=== PATIENT | male | born 1945 | race Caucasian/White ===

== ENCOUNTER 2021-03-05 12:02 | Inpatient (IN) | payer MEDICARE, OTHER, SELFPAY ==
[2021-03-05] VITALS (16 sets, daily range): BP systolic 153–207; BP diastolic 10–122; PULSE 65–100; RESP 18–24; TEMP 36–36.7; O2SAT 84–93; BMI 34.9; BMI 34.4
--- NOTE | 2021-03-05 12:45 | EKG12_ITS ---
Test Reason : FEVER Blood Pressure : / mmHG Vent. Rate : 095 BPM Atrial Rate : 095 BPM P-R Int : 148 ms QRS Dur : 140 ms QT Int : 420 ms P-R-T Axes : 000 -19 -03 degrees QTc Int : 527 ms Sinus rhythm with Premature supraventricular complexes Right bundle branch block Inferior infarct , age undetermined , cannot be excluded Abnormal ECG Confirmed by GLADIS PEARL, LAVON ([id number]), sound editor GOLDEN CHRISTIANSON ([id number]) on 03/06/2021 11:19:28 AM Referred By: EVELYNE Confirmed By:LAVON GRIFFITH MD
--- NOTE | 2021-03-05 13:04 | EDS_ITS ---
HPI History of Present Illness Chief Complaint: Shortness of Breath Narrative Narrative: 75-year-old male with reported medical history of hypertension for which he takes no medications presenting with shortness of breath. Patient states that he has been having viral symptoms of fever, chills, body aches for about a week. He states that most of these have resolved. He feels more dyspneic than he initially did. Patient was not vaccinated for COVID-19. He has no known sick contacts. Patient is denying chest pain. He states he has a little bit of diarrhea but does not have any abdominal pain. He is not vomiting. [facility] Medical History HTN (hypertension) Home Medications ascorbic acid (vitamin C) 500 mg PO DAILY 03/05/21 [History Last Taken 03/04/21] Allergy/AdvReac Type Severity Reaction Status Date / Time No Known Allergies Allergy Verified 03/05/21 12:10 Social History (Updated 03/05/21 @ 15:[address] Elias Rainey DO) Smoking Status: Former smoker alcohol intake: current alcohol intake frequency: a few times a month substance use type: does not use ROS ROS ED Constitutional Constitutional ED: Reports chills and fever(s) Eyes Eyes: Denies blurry vision, diplopia or other ENT ENT ED: Denies rhinorrhea or sore throat Cardiovascular Cardiovascular: Denies chest pain or palpitations Respiratory/Chest Respiratory/Chest: Reports cough and dyspnea Gastrointestinal Gastrointestinal: Reports diarrhea; Denies abdominal pain, nausea or vomiting Genitourinary Genitourinary ED: Denies dysuria or hematuria Musculoskeletal Musculoskeletal: Reports myalgias; Denies back pain or neck pain Integumentary Denies Abrasions or rash Neurologic Neurologic: Reports headache(s); Denies paresthesias or weakness EXAM Physical Exam Const Vital Signs: 03/05/21 12:08 03/05/21 12:35 03/05/21 12:36 Temperature 97.9 F Temperature Source Temporal Pulse Rate 98 Respiratory Rate 20 H Respiratory Effort Respiratory Depth Respiratory Pattern Blood Pressure 202/93 H 207/104 H Blood Pressure Mean 129 138 Pulse Ox 84 92 Oxygen Delivery Method Room Air Nasal Cannula Oxygen Flow Rate (L/min) 4 03/05/21 12:37 03/05/21 13:13 03/05/21 14:42 Temperature Temperature Source Pulse Rate 100 65 Respiratory Rate 24 H Respiratory Effort Short of Breath Labored Respiratory Depth Deep Respiratory Pattern Tachypnea Blood Pressure 184/105 H 181/10 H Blood Pressure Mean 131 67 Pulse Ox 93 Oxygen Delivery Method Nasal Cannula Nasal Cannula Oxygen Flow Rate (L/min) 4 4 03/05/21 15:41 Temperature 96.8 F L Temperature Source Temporal Pulse Rate 74 Respiratory Rate 19 H Respiratory Effort Respiratory Depth Respiratory Pattern Blood Pressure 175/97 H Blood Pressure Mean 123 Pulse Ox 92 Oxygen Delivery Method Nasal Cannula Oxygen Flow Rate (L/min) 4 Positive obese Constitutional Narrative: Noted to be hypoxic on arrival at 84% on room air. General Appearance ED: NAD; Negative for pallor Nutritional Appearance: obese HEENT Reports dry mucous membranes atraumatic Mouth ED: Yes dry mucous membranes Mouth: dry mucous membranes Eyes PERRL and EOMs intact bilaterally Neck no lymphadenopathy and supple Resp normal respiratory effort Auscultation: rales right base Cardio regular rate Rhythm: abnormal rhythm irregularly irregular GI Palpation: soft and splenomegaly Back/Spine normal to inspection Extremity normal to inspection General Extremety ED: Negative for edema or tenderness General Extremity: Negative for edema Neuro oriented x3 and CN's II-XII intact bilaterally Sensorium / Orientation: alert Psych mental status grossly normal Skin General Skin Exam: Negative for jaundice or pallor Lesions: no lesions Rashes: no rashes MDM MDM MDM Narrative Medical decision making narrative: Patient presenting on day 7 of COVID-19 symptoms. He is not been tested yet. He states he has a history of hypertension for which he does not take any medication for. Patient had an initial EKG which on my interpretation shows atrial fibrillation at a rate of 71 bpm. Chest x-ray my interpretation shows bilateral pulmonary infiltrates with which are greater on the left side of the hemithorax. High-sensitivity troponin is 53 CBC shows no leukocytosis or leukopenia. He is not lymphopenic. Creatinine is 1.81 with no comparison and the patient has not been to the doctor in many years. So unclear if this is due to current dehydration or whether this is a long-term effect of his uncontrolled high blood pressure. Potassium is 3.1. Sodium is 127. AST and ALT are 71 and 75 respectively. Bilirubin is normal. Glucose is elevated at 242 without an anion gap. I suspect since the patient has not been eating he likely has early onset diabetes. Again the p atient does not have seen a physician in many years. Patient was given a dose of Lopressor to improve his blood pressure and his heart rate. D-dimer was elevated at 1.69 and the patient was given 500 cc of IV fluids and CTA of the chest was obtained which does not identify any pulmonary emboli but does show diffuse Covid pneumonitis. Patient's oxygen saturations were 84% on room air when he arrived. He was placed on 4 L and was able to wean down to 3 L and maintain sats of 93%. I personally ambulated the patient in the room on 4 L of oxygen for 30 seconds and the patient's O2 sats dropped to 84% again. Patient was very dyspneic and was having a hard time walking. Given this I feel the patient needs to be admitted for further treatment. He states that he is not amenable to any Covid treatment therapies other than dexamethasone. Patient transferred to the floor in stable condition. Impression: 1. COVID-19 pneumonitis 2. Hypoxic respiratory failure 3. Hypertension?established [id number] 4. Elevated creatinine Lab Data Attestation: I reviewed the patient's lab results. Labs: Laboratory Results - last 24 hr 03/05/21 03/05/21 03/05/21 12:55 12:55 12:55 WBC 7.6 RBC 5.36 Hgb 15.8 Hct 44.1 MCV 82.3 MCH 29.5 MCHC 35.8 RDW Std Deviation 36.1 RDW Coeff of Marcelle 11.9 Plt Count 188 MPV 12.4 H Immature Gran % (Auto) 0.900 Neut % (Auto) 71.8 H Lymph % (Auto) 12.4 L Harris % (Auto) 14.8 H Eos % (Auto) 0.0 Baso % (Auto) 0.1 Absolute Neuts (auto) 5.5 Absolute Lymphs (auto) 0.94 Nucleated RBC % 0 D-Dimer Quant (PE/DVT) 1.69 H* Sodium 127 L Potassium 3.1 L Chloride 91 L Carbon Dioxide 22.0 Anion Gap 14 BUN 23 H Creatinine 1.81 H Estim Creat Clear Calc 34.12 Est GFR (MDRD) Af Amer 47 L Est GFR (MDRD) Non-Af 39 L BUN/Creatinine Ratio 12.7 Glucose 242 H Calcium 8.6 Total Bilirubin 0.70 AST 71 H ALT 75 H Alkaline Phosphatase 77 Troponin I High Sens 53 B-Natriuretic Peptide Total Protein 6.8 Albumin 2.5 L Globulin 4.3 H Albumin/Globulin Ratio 0.6 L 03/05/21 12:55 WBC RBC Hgb Hct MCV MCH MCHC RDW Std Deviation RDW Coeff of Marcelle Plt Count MPV Immature Gran % (Auto) Neut % (Auto) Lymph % (Auto) [place] % (Auto) Eos % (Auto) Baso % (Auto) Absolute Neuts (auto) Absolute Lymphs (auto) Nucleated RBC % D-Dimer Quant (PE/DVT) Sodium Potassium Chloride Carbon Dioxide Anion Gap BUN Creatinine Estim Creat Clear Calc Est GFR (MDRD) Af Amer Est GFR (MDRD) Non-Af BUN/Creatinine Ratio Glucose Calcium Total Bilirubin AST ALT Alkaline Phosphatase Troponin I High Sens B-Natriuretic Peptide 161.8 H Total Protein Albumin Globulin Albumin/Globulin Ratio Radiography Diagnostic Testing: Clinical Impression(s) from Imaging Studies Chest X-Ray 03/05/21 13:10 IMPRESSION: Bilateral pulmonary infiltrates worse in the left hemithorax. Electronically Signed: Papi Rossi MD at 13:27 EST , Service support , Chest CTA 03/05/21 13:29 IMPRESSION: No evidence of pulmonary embolism. Diffuse bilateral pulmonary infiltrates involving both upper and lower lobes. This is worse in the left hemithorax. Electronically Signed: Papi Rossi MD at 14:20 EST , Service support , Discharge Plan Triage Chief Complaint: Shortness of Breath ED Provider: Trevon Duarte
--- NOTE | 2021-03-05 13:10 | RAD_ITS ---
STUDY: X-RAY CHEST REASON FOR EXAM: Male, 75 years old. Cough TECHNIQUE: Single AP portable view of the chest. COMPARISON: None. FINDINGS: EKG electrodes are seen. Bilateral pulmonary infiltrates worse in the left hemithorax. There is no demonstrated pleural abnormality. There is borderline cardiomegaly. Normal mediastinum and srikanth. Normal visualized pulmonary arteries. Normal visualized aortic arch and descending thoracic aorta. Normal visualized thoracic spine. Normal visualized ribs, clavicles, and shoulders. There is no demonstrated abnormality of the visualized soft tissue structures of the upper abdomen. RAD/Chest 1 View (Portable) IMPRESSION: Bilateral pulmonary infiltrates worse in the left hemithorax. Electronically Signed: Papi Rossi MD at 13:27 EST , Service support ,
[2021-03-05 13:13] LABS: Absolute Lymphocyte Count 0.94 X10^3/uL (0.83-4.51); Absolute Neutrophil Count 5.5 X10^3/uL (2.0-7.7); Basophil# 0.01 X10^3/uL; Basophil% 0.1 % (0-1); Hematocrit 44.1 % (40-54); Hemoglobin 15.8 g/dL (13.0-16.5); Lymphocyte # 0.94 X10^3/ul (0.83-4.51); Lymphocyte % 12.4 % (19-41); Mean Corp Hgb Conc 35.8 g/dL (32-36); Mean Corpuscular Hgb 29.5 pg (27.0-32.0); Mean Corpuscular Volume 82.3 fL (80-94); Mean Platelet Vol. 12.4 fl (6.2-12.0); Monocyte# 1.13 X10^3/uL; Monocyte% 14.8 % (0-10); NRBC Flagged by Analyzer 0 % (0-5); Neutrophil # 5.46 X10^3/uL (2.7-7.7); Neutrophil % 71.8 % (47-70); Platelet Count 188 K/mm3 (150-450); RBC Distribution Width CV 11.9 % (11.6-14.6); RBC Distribution Width SD 36.1 fl (35.1-43.9); Red Blood Count 5.36 M/mm3 (4.6-6.2); White Blood Count 7.6 K/mm3 (4.4-11.0)
[2021-03-05 13:25] LABS: ALB/GLOB Ratio 0.6 RATIO (0.9-2.4); AST(SGOT) 71 U/L (15-37); Alanine Aminotransfer ALT/SGPT 75 U/L (16-61); Albumin, Serum 2.5 g/dL (3.2-5.0); Alkaline Phosphatase 77 U/L (45-117); Anion Gap 14 (5-15); BUN 23 mg/dL (7-18); BUN/Creat Ratio 12.7 RATIO (10-20); Calcium,Total 8.6 mg/dL (8.5-10.1); Chloride 91 mmol/L (98-107); Creatinine, Serum 1.81 mg/dL (0.70-1.30); EST Glomerular Filtration Rate 39 mL/min (>60); Est Glom Filt Rate - Afr Amer 47 mL/min (>60); Estimated Creatinine Clearance 34.12 ml/min; Globulin 4.3 g/dL (2.2-4.2); Glucose 242 mg/dL (74-106); Potassium 3.1 mmol/L (3.5-5.1); Protein, Total 6.8 g/dL (6.4-8.2); Sodium Level 127 mmol/L (136-145); Troponin-I HS 53 pg/mL (3.0-78.0)
--- NOTE | 2021-03-05 13:29 | CT_ITS ---
STUDY: CTA CHEST REASON FOR EXAM: Male, 75 years old. Hypoxic respiratory failure RADIATION DOSAGE (If Supplied By Facility): CTDIvol = ( 12.66 ) mGy, DLP = ( 477.61 ) mGycm TECHNIQUE: The examination was performed with the intravenous administration of IV 100mL Isovue-370. Post-processing of the angiographic images was performed, with multiplanar reformation and 3D reconstruction. Individualized dose optimization techniques were used for this CT. COMPARISON: Comparison is made with prior chest radiograph done earlier today. FINDINGS: Normal enhancement of the main pulmonary artery and right and left pulmonary arteries. Normal enhancement of the bilateral peripheral pulmonary arteries. There is no demonstrated pulmonary embolism. There is atherosclerotic calcification of the aortic arch with tortuosity. There is no demonstrated aortic dissection. There are calcifications of the coronary arteries. There are visualized mediastinal lymph nodes, which are within normal size limits, and with normal morphology. Normal hilar regions. Normal visualized trachea and bronchi. The lungs are well expanded. Diffuse bilateral pulmonary infiltrates involving both upper and lower lobes. Normal pleura. Normal chest wall structures. There are degenerative changes of thoracic spine. Normal visualized upper abdomen. CT/CTA Chest W/WO Contrast IMPRESSION: No evidence of pulmonary embolism. Diffuse bilateral pulmonary infiltrates involving both upper and lower lobes. This is worse in the left hemithorax. Electronically Signed: Papi Rossi MD at 14:20 EST , Service support ,
[2021-03-05 13:33] LABS: D-Dimer Quantitative (DVT/PE) 1.69 FEU/ug/m (0.27-0.49)
[2021-03-05 13:37] LABS: BNP,B-Type NATRIURETIC PEPTIDE 161.8 pg/mL (0-100)
[2021-03-05] MEDS: Metoprolol Tartrate 5 MG/5 ML Vial IV (13:37)
[2021-03-05] MEDS: dexAMETHasone 10 MG/ML Vial 6 MG IV (13:37)
--- NOTE | 2021-03-05 13:43 | NURSING ---
NO OLD EKGS
--- NOTE | 2021-03-05 15:06 | NURSING ---
MED SURG JOERI COVID 19 PNEUMONITIS, HYPOXIC RESP FAILURE
--- NOTE | 2021-03-05 15:55 | HP.PCM.HOS_ITS ---
HPI - General General Date of Admission: 03/05/21 HPI Narrative VANESA BARBOSA, is a 75 M who presents with illness for 6 days and progressive shortness of breath during this time. Patient progressively got worse and presented to the emergency room. Patient was positive for COVID-19 had a CAT scan that was negative for any pulmonary embolism but did show diffuse bilateral infiltrates consistent with COVID-19. In the emergency room, patient was noted to be profoundly hypertensive with a systolic over 200s. Patient did receive a 5 mg of IV metoprolol tartrate as well as 6 mg of IV dexamethasone. Patient is unvaccinated for COVID-19. [facility] Medical History HTN (hypertension) Home Medications ascorbic acid (vitamin C) 500 mg PO DAILY 03/05/21 [History Last Taken 03/04/21] Allergy/AdvReac Type Severity Reaction Status Date / Time No Known Allergies Allergy Verified 03/05/21 12:10 Social History (Updated 03/05/21 @ 15:[address] Elias Rainey DO) Smoking Status: Former smoker alcohol intake: current alcohol intake frequency: a few times a month substance use type: does not use ROS ROS Narrative Diarrhea. All review of systems were negative except as mentioned above in the history of present illness and the other review of systems. Vital Signs Vital Signs Vital Signs: 03/05/21 12:08 03/05/21 12:35 03/05/21 12:36 Temperature 36.6 C Temperature Source Temporal Pulse Rate 98 Respiratory Rate 20 H Respiratory Effort Respiratory Depth Respiratory Pattern Blood Pressure 202/93 H 207/104 H Blood Pressure Mean 129 138 Pulse Ox 84 92 Oxygen Delivery Method Room Air Nasal Cannula Oxygen Flow Rate (L/min) 4 03/05/21 12:37 03/05/21 13:13 03/05/21 14:42 Temperature Temperature Source Pulse Rate 100 65 Respiratory Rate 24 H Respiratory Effort Short of Breath Labored Respiratory Depth Deep Respiratory Pattern Tachypnea Blood Pressure 184/105 H 181/10 H Blood Pressure Mean 131 67 Pulse Ox 93 Oxygen Delivery Method Nasal Cannula Nasal Cannula Oxygen Flow Rate (L/min) 4 4 03/05/21 15:41 Temperature 36.0 C L Temperature Source Temporal Pulse Rate 74 Respiratory Rate 19 H Respiratory Effort Respiratory Depth Respiratory Pattern Blood Pressure 175/97 H Blood Pressure Mean 123 Pulse Ox 92 Oxygen Delivery Method Nasal Cannula Oxygen Flow Rate (L/min) 4 Weight Weight: 104.326 kg Body Mass Index (BMI) 34.9 Physical Exam Const alert General Appearance: cooperative HEENT normocephalic and head/scalp atraumatic Resp normal respiratory effort, no retractions, no use of accessory muscles and clear to auscultation bilaterally Cardio regular rate, regular rhythm, S1 normal heart sound and S2 normal heart sound GI normal to inspection, nondistended, normoactive bowel sounds, soft to palpation and non-tender Extremity normal to inspection Skin no rashes or lesions noted Neuro Sensorium / Orientation: awake and alert Psych affect normal Results Lab / Micro Data Attestation: I reviewed the patient's lab results. Result Diagrams: 03/05/21 12:55 03/05/21 12:55 Labs: Laboratory Results - last 24 hr 03/05/21 12:55: WBC 7.6, RBC 5.36, Hgb 15.8, Hct 44.1, MCV 82.3, MCH 29.5, MCHC 35.8, RDW Std Deviation 36.1, RDW Coeff of Marcelle 11.9, Plt Count 188, MPV 12.4 H, Immature Gran % (Auto) 0.900, Neut % (Auto) 71.8 H, Lymph % (Auto) 12.4 L, Steele % (Auto) 14.8 H, Eos % (Auto) 0.0, Baso % (Auto) 0.1, Absolute Neuts (auto) 5.5, Absolute Lymphs (auto) 0.94, Nucleated RBC % 0 03/05/21 12:55: D-Dimer Quant (PE/DVT) 1.69 H* 03/05/21 12:55: Sodium 127 L, Potassium 3.1 L, Chloride 91 L, Carbon Dioxide 22.0, Anion Gap 14, BUN 23 H, Creatinine 1.81 H, Estim Creat Clear Calc 34.12, Est GFR (MDRD) Af Amer 47 L, Est GFR (MDRD) Non-Af 39 L, BUN/Creatinine Ratio 12.7, Glucose 242 H, Calcium 8.6, Total Bilirubin 0.70, AST 71 H, ALT 75 H, Alkaline Phosphatase 77, Troponin I High Sens 53, Total Protein 6.8, Albumin 2.5 L, Globulin 4.3 H, Albumin/Globulin Ratio 0.6 L 03/05/21 12:55: B-Natriuretic Peptide 161.8 H Micro: Microbiology 03/05/21 12:50 Nasal Secretion SARS-CoV-2 Antigen (Rapid) - Final SARS-CoV-2 (COVID 19) EKG Initial EKG: Attestation: I personally reviewed and interpreted this EKG as follows: Prior EKG tracings: available for review EKG Rhythm Intrepretation: Sinus Rhythm (RBBB, no prior) Radiology Impression Chest X-Ray 03/05/21 13:10 IMPRESSION: Bilateral pulmonary infiltrates worse in the left hemithorax. Electronically Signed: Papi Rossi MD at 13:27 EST , Service support , Chest CTA 03/05/21 13:29 IMPRESSION: No evidence of pulmonary embolism. Diffuse bilateral pulmonary infiltrates involving both upper and lower lobes. This is worse in the left hemithorax. Electronically Signed: Papi Rossi MD at 14:20 EST , Service support , Assessment & Plan Assessment/Plan (1) Acute respiratory failure with hypoxia: (2) COVID-19: PLAN: 1. Acute hypoxic respiratory failure Secondary to diffuse COVID-19 Evaluate for underlying bacterial pneumonia but hold off on any antibiotics at this time. Patient currently on 4 L and when they try to get him at bedside patient was barely moving at all and was dropping down to the low 90s. Patient has a high concern for further worsening the patient be brought in and treated for COVID- 19. See below for further details. 2. Acute COVID-19 pneumonia Onset 02/28/21, quarantine through 03/19/21 Unvaccinated Treat the patient with 10 days of dexamethasone and 5 days of remdesivir Informed patient that if his respiratory status does get worse and see if he would be a candidate for other medications including baricitinib. So advised patient to comply with instructions regards to chest physiotherapy, incentive spirometer and possible prone positioning Explained he and his that given the extent of inflammation as long as possible that he could continue to get worse. 3. Hypertension New diagnosis but likely chronic as patient does not follow-up with primary care physician Start amlodipine 10 mg As needed clonidine 4. Chronic kidney disease stage IIIb Once again this is likely not acute as patient does not see a primary care physician Patient did receive IV contrast so caution with his kidney function. His kidney function does continue to get worse, may need to discontinue the remdesivir Patient will need to follow-up with nephrology as outpatient 5. Diabetes mellitus type 2 New diagnosis but likely not new Glucose 242 Check an A1c Diabetic diet Sliding scale insulin 6. VTE prophylaxis: Lovenox 7. CODE STATUS: Addressed with patient and his . Patient wishes to be intubated and is full CODE STATUS. Charges/Coding Visit Charges Inpatient E&M: 93327 Init Hosp L3
[2021-03-05] MEDS: amLODIPine 10 MG Tablet PO (17:46)
[2021-03-05 18:11] LABS: Bedside Glucose 291 mg/dL (70-110)
[2021-03-05] MEDS: cloNIDine HCl 0.1 MG Tablet 0.2 MG PO (20:12)
[2021-03-05 21:51] LABS: Bedside Glucose 439 mg/dL (70-110)
[2021-03-05] MEDS: Insulin Lispro 100 UNIT/ML INSULN.PEN SC (23:24)
--- NOTE | 2021-03-05 23:27 | PCS.PANDOC ---
PANDEMIC DOCUMENTATION INITIATED: Date: 03/05/2021 Time: 190
[2021-03-06] VITALS (12 sets, daily range): BP systolic 135–181; BP diastolic 26–109; PULSE 56–96; RESP 18–28; TEMP 36.4–37.1; O2SAT 86–96
[2021-03-06] MEDS: 0.9% Saline Lock 10 ML Syringe IV (02:37)
[2021-03-06 02:56] LABS: Bedside Glucose 335 mg/dL (70-110)
[2021-03-06] MEDS: cloNIDine HCl 0.1 MG Tablet 0.2 MG PO (06:30)
[2021-03-06] MEDS: Insulin Lispro 100 UNIT/ML INSULN.PEN SC ×4 (06:45→21:47)
[2021-03-06 06:54] LABS: Absolute Lymphocyte Count 0.82 X10^3/uL (0.83-4.51); Absolute Neutrophil Count 5.2 X10^3/uL (2.0-7.7); Basophil# 0.01 X10^3/uL; Basophil% 0.1 % (0-1); Hematocrit 43.3 % (40-54); Hemoglobin 15.6 g/dL (13.0-16.5); Lymphocyte # 0.82 X10^3/ul (0.83-4.51); Lymphocyte % 11.7 % (19-41); Mean Corpuscular Hgb 29.9 pg (27.0-32.0); Monocyte# 0.94 X10^3/uL; Monocyte% 13.4 % (0-10); NRBC Flagged by Analyzer 0 % (0-5); Neutrophil % 74.1 % (47-70); Platelet Count 216 K/mm3 (150-450); RBC Distribution Width CV 12.1 % (11.6-14.6); Red Blood Count 5.22 M/mm3 (4.6-6.2)
[2021-03-06 06:55] LABS: Bedside Glucose 267 mg/dL (70-110)
[2021-03-06 07:22] LABS: Hemoglobin A1c 10.8 % (3.8-5.6)
[2021-03-06 07:32] LABS: ALB/GLOB Ratio 0.6 RATIO (0.9-2.4); AST(SGOT) 50 U/L (15-37); Alanine Aminotransfer ALT/SGPT 67 U/L (16-61); Albumin, Serum 2.3 g/dL (3.2-5.0); Alkaline Phosphatase 76 U/L (45-117); Anion Gap 12 (5-15); BUN 27 mg/dL (7-18); BUN/Creat Ratio 20.3 RATIO (10-20); Calcium,Total 8.3 mg/dL (8.5-10.1); Chloride 92 mmol/L (98-107); Creatinine, Serum 1.33 mg/dL (0.70-1.30); EST Glomerular Filtration Rate 56 mL/min (>60); Est Glom Filt Rate - Afr Amer 67 mL/min (>60); Estimated Creatinine Clearance 46.43 ml/min; Globulin 4.1 g/dL (2.2-4.2); Glucose 247 mg/dL (74-106); Potassium 3.2 mmol/L (3.5-5.1); Protein, Total 6.4 g/dL (6.4-8.2); Sodium Level 127 mmol/L (136-145); Thyroid Stim Hormone (TSH) 0.42 uIU/mL (0.358-3.74)
[2021-03-06] MEDS: amLODIPine 10 MG Tablet PO (08:18)
[2021-03-06] MEDS: Enoxaparin 40 MG/0.4 ML Syringe SC (10:44)
[2021-03-06] MEDS: dexAMETHasone 4 MG Tablet 6 MG PO (10:44)
[2021-03-06] MEDS: Ascorbic Acid 500 MG Tablet PO (10:45)
[2021-03-06 11:20] LABS: Bedside Glucose 293 mg/dL (70-110)
--- NOTE | 2021-03-06 11:58 | PCM.PN.HOSP ---
Subjective Subjective Doing well, no issues overnight. Having increasing oxygen requirements Objective Data Objective Data Vital Signs: Vital Signs Temp Pulse Resp BP Pulse Ox 97.7 F L 88 18 144/88 H 92 03/06/21 10:41 03/06/21 10:41 03/06/21 10:41 03/06/21 10:41 03/06/21 10:41 Oxygen Flow Rate (L/min) 12 Oxygen Delivery Method High Flow Weight: 226 lb 6.4 oz Body Mass Index (BMI) 34.4 Intake & Output: Intake and Output for Last 24 Hours 03/05/21 03/06/21 03/07/21 03:59 03:59 03:59 Intake Total 800 / 800 250 / 250 Output Total 400 / 400 Balance 800 / 800 -150 / -150 Lab / Micro Data Result Diagrams: 03/06/21 06:20 03/06/21 06:20 Labs: Laboratory Results - last 24 hr 03/05/21 12:55: WBC 7.6, RBC 5.36, Hgb 15.8, Hct 44.1, MCV 82.3, MCH 29.5, MCHC 35.8, RDW Std Deviation 36.1, RDW Coeff of Marcelle 11.9, Plt Count 188, MPV 12.4 H, Immature Gran % (Auto) 0.900, Neut % (Auto) 71.8 H, Lymph % (Auto) 12.4 L, [place] % (Auto) 14.8 H, Eos % (Auto) 0.0, Baso % (Auto) 0.1, Absolute Neuts (auto) 5.5, Absolute Lymphs (auto) 0.94, Nucleated RBC % 0 03/05/21 12:55: D-Dimer Quant (PE/DVT) 1.69 H* 03/05/21 12:55: Sodium 127 L, Potassium 3.1 L, Chloride 91 L, Carbon Dioxide 22.0, Anion Gap 14, BUN 23 H, Creatinine 1.81 H, Estim Creat Clear Calc 34.12, Est GFR (MDRD) Af Amer 47 L, Est GFR (MDRD) Non-Af 39 L, BUN/Creatinine Ratio 12.7, Glucose 242 H, Calcium 8.6, Total Bilirubin 0.70, AST 71 H, ALT 75 H, Alkaline Phosphatase 77, Troponin I High Sens 53, Total Protein 6.8, Albumin 2.5 L, Globulin 4.3 H, Albumin/Globulin Ratio 0.6 L 03/05/21 12:55: B-Natriuretic Peptide 161.8 H 03/05/21 17:38: POC Glucose 291 H 03/05/21 21:25: POC Glucose 439 H 03/06/21 02:32: POC Glucose 335 H 03/06/21 06:20: WBC 7.0, RBC 5.22, Hgb 15.6, Hct 43.3, MCV 83.0, MCH 29.9, MCHC 36.0, RDW Std Deviation 37.0, RDW Coeff of Marcelle 12.1, Plt Count 216, MPV 12.0, Immature Gran % (Auto) 0.700, Neut % (Auto) 74.1 H, Lymph % (Auto) 11.7 L, [place] % (Auto) 13.4 H, Eos % (Auto) 0.0, Baso % (Auto) 0.1, Absolute Neuts (auto) 5.2, Absolute Lymphs (auto) 0.82 L, Nucleated RBC % 0 03/06/21 06:20: Sodium 127 L, Potassium 3.2 L, Chloride 92 L, Carbon Dioxide 23.0, Anion Gap 12, BUN 27 H, Creatinine 1.33 H, Estim Creat Clear Calc 46.43, Est GFR (MDRD) Af Amer 67, Est GFR (MDRD) Non-Af 56 L, BUN/Creatinine Ratio 20.3 H, Glucose 247 H, Calcium 8.3 L, Total Bilirubin 0.60, AST 50 H, ALT 67 H, Alkaline Phosphatase 76, Total Protein 6.4, Albumin 2.3 L, Globulin 4.1, Albumin/Globulin Ratio 0.6 L, TSH 0.42 03/06/21 06:20: Hemoglobin A1c 10.8 H 03/06/21 06:25: POC Glucose 267 H 03/06/21 11:12: POC Glucose 293 H Micro: Microbiology 03/05/21 18:00 Urine, Clean Catch Legionella Antigen - Final 03/05/21 18:00 Urine, Clean Catch Streptococcus pneumoniae Antigen (M - Final 03/05/21 12:50 Nasal Secretion SARS-CoV-2 Antigen (Rapid) - Final SARS-CoV-2 (COVID 19) Radiography Diagnostic Testing: Radiology Impression Chest X-Ray 03/05/21 13:10 IMPRESSION: Bilateral pulmonary infiltrates worse in the left hemithorax. Electronically Signed: Papi Rossi MD at 13:27 EST , Service support , Chest CTA 03/05/21 13:29 IMPRESSION: No evidence of pulmonary embolism. Diffuse bilateral pulmonary infiltrates involving both upper and lower lobes. This is worse in the left hemithorax. Electronically Signed: Papi Rossi MD at 14:20 EST , Service support , Physical Exam Const alert, oriented x3 and no apparent distress General Appearance: cooperative HEENT normocephalic and moist oral mucous membranes Eyes PERRL, EOMs intact bilaterally and conjunctivae normal Neck supple and no JVD Resp normal respiratory effort, no retractions and no use of accessory muscles Auscultation: diminished lung sounds; Negative for crackles, rales, rhonchi or wheezes Cardio regular rate, regular rhythm, S1 normal heart sound, S2 normal heart sound and no murmurs GI soft to palpation, non-tender and non-distended; Negative for hepatosplenomegaly Extremity no clubbing, cyanosis or edema Skin no rashes or lesions noted Neuro no focal motor deficits and no sensory deficits noted Psych affect normal Appearance: appropriate Assessment & Plan Assessment/Plan (1) Acute respiratory failure with hypoxia: (2) COVID-19: PLAN: 1. Acute hypoxic respiratory failure Secondary to diffuse COVID-19 Evaluate for underlying bacterial pneumonia but hold off on any antibiotics at this time. Has been having increasing oxygen requirements, may need to advance to [facility] if that is the case we will consult infectious disease for baricitinib evaluation 2. Acute COVID-19 pneumonia Onset 02/28/21, quarantine through 03/19/21 Unvaccinated Treat the patient with 10 days of dexamethasone and 5 days of remdesivir Informed patient that if his respiratory status does get worse and see if he would be a candidate for other medications including baricitinib. So advised patient to comply with instructions regards to chest physiotherapy, incentive spirometer and possible prone positioning Explained he and his that given the extent of inflammation as long as possible that he could continue to get worse. 3. Hypertension New diagnosis but likely chronic as patient does not follow-up with primary care physician Start amlodipine 10 mg As needed clonidine 4. Chronic kidney disease stage IIIb Once again this is likely not acute as patient does not see a primary care physician Patient did receive IV contrast so caution with his kidney function. His kidney function does continue to get worse, may need to discontinue the remdesivir Patient will need to follow-up with nephrology as outpatient 5. Diabetes mellitus type 2 New diagnosis but likely not new Glucose 242 Check an A1c Diabetic diet Sliding scale insulin DVT: Lovenox Charges/Coding Visit Charges Inpatient E&M: 73143 Subs Hosp L2
--- NOTE | 2021-03-06 15:30 | CASEMGMT ---
RN YOMI IT RISK ADVISOR CM placed call to pt's room for initial transition planning/care coordination assessment. MOHINDER CELAYA introduced self and role at [facility]. Pt voices understanding and consents to assessment at this time. Pt is A/O at this time and answers all questions appropriately. Care providers, pharmacy, and demographics verified/updated at this time. PCP: Pt states used to see Dr Guzman @ [facility]. States he has not been in to see him for about 20 yrs. He states would like to start seeing him again once he is discharged. MOHINDER CELAYA placed call to [facility] and spoke w/nurse Thea. She states pt's last visit was August,. She states pt does have diagnosis of chronic hypertension and diabetes. According to their records pt was to be taking Lisinopril 40 mg daily but has not had med filled since 2016. Pt's HgbA1C was 6.6 in 2016 and pt was not on any meds for diabetes at that time. Thea, nurse, was made aware pt wishes to see Dr Guzman after discharge. Thea confirms pt is still considered an active pt w/them and would be able to see pt after discharge. Thea informed of current HgbA1c of 10.8, hypertension, and that pt has not been taking any medication for same. She states will inform Dr Guzman. Pt made aware Dr Guzman is able to see him as his PCP after discharge from [facility]. Specialists: Preferred Pharmacy: [facility] Retail Insurance: [facility], MMO Prescription Benefit: Yes Living Will/HPOA: Has both LW and HPOA, who is his , Olive. LNOK: , Olive. 3 adult sons--one lives in [place] and 2 live out of state Living Arrangements: Lives in 2-story home w/basement w/1 step to enter thru front entrance. Bedroom is on 2nd floor, although pt states can sleep on first floor if needed. They have a second bathroom. has not been ill and has no symptoms of COVID at this time per pt. Pt aware to sleep in separate bedrooms and use separate bathrooms when returning home until out of isolation. Pt states they have some neighbors and friends that may be able to bring groceries/supplies, if needed. Pt is independent w/ADL's. manages home tasks. Transportation: Pt states drives self and states no transportation concerns at this time. also drives. DME: States has a BP monitor. Recommended to get a pulse ox. Pt does not have O2 or a glucometer. HHC/SNF: No history of either. Pt wishes to return home and states has no concerns with going home at time of discharge. 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 CM to follow for home oxygen needs and any further discharge planning/needs. Pt voices no further concerns/needs at this time. Advised pt to ask for CM if any further questions/concerns/needs arise. Voices understanding. PLAN: Home. Follow for any O2 needs @ d/c. Pt will need script for a glucometer. Apollo BURNHAM RN CM
[2021-03-06 17:15] LABS: Bedside Glucose 358 mg/dL (70-110)
[2021-03-06 21:55] LABS: Bedside Glucose 355 mg/dL (70-110)
--- NOTE | 2021-03-06 22:40 | PCS.PANDOC ---
PANDEMIC DOCUMENTATION INITIATED: Date: 10/14/2020 Time: 190
[2021-03-07] VITALS (12 sets, daily range): BP systolic 144–174; BP diastolic 90–100; PULSE 63–102; RESP 18–26; TEMP 36.5–37.1; O2SAT 90–98
[2021-03-07 07:04] LABS: Absolute Lymphocyte Count 1.21 X10^3/uL (0.83-4.51); Absolute Neutrophil Count 8.5 X10^3/uL (2.0-7.7); Basophil# 0.03 X10^3/uL; Basophil% 0.3 % (0-1); Hematocrit 45.9 % (40-54); Hemoglobin 15.9 g/dL (13.0-16.5); Lymphocyte # 1.21 X10^3/ul (0.83-4.51); Lymphocyte % 10.8 % (19-41); Mean Corp Hgb Conc 34.6 g/dL (32-36); Mean Corpuscular Volume 83.8 fL (80-94); Mean Platelet Vol. 11.9 fl (6.2-12.0); Monocyte# 1.36 X10^3/uL; Monocyte% 12.2 % (0-10); NRBC Flagged by Analyzer 0 % (0-5); Neutrophil # 8.51 X10^3/uL (2.7-7.7); Platelet Count 269 K/mm3 (150-450); RBC Distribution Width CV 11.9 % (11.6-14.6); RBC Distribution Width SD 36.5 fl (35.1-43.9); Red Blood Count 5.48 M/mm3 (4.6-6.2); White Blood Count 11.2 K/mm3 (4.4-11.0)
[2021-03-07 07:40] LABS: ALB/GLOB Ratio 0.5 RATIO (0.9-2.4); AST(SGOT) 49 U/L (15-37); Alanine Aminotransfer ALT/SGPT 82 U/L (16-61); Albumin, Serum 2.4 g/dL (3.2-5.0); Alkaline Phosphatase 87 U/L (45-117); Anion Gap 11 (5-15); BUN 35 mg/dL (7-18); BUN/Creat Ratio 24.8 RATIO (10-20); Calcium,Total 8.9 mg/dL (8.5-10.1); Chloride 94 mmol/L (98-107); Creatinine, Serum 1.41 mg/dL (0.70-1.30); EST Glomerular Filtration Rate 52 mL/min (>60); Est Glom Filt Rate - Afr Amer 63 mL/min (>60); Estimated Creatinine Clearance 43.79 ml/min; Globulin 4.4 g/dL (2.2-4.2); Glucose 244 mg/dL (74-106); Potassium 3.6 mmol/L (3.5-5.1); Protein, Total 6.8 g/dL (6.4-8.2); Sodium Level 131 mmol/L (136-145)
[2021-03-07 08:11] LABS: Bedside Glucose 263 mg/dL (70-110)
[2021-03-07] MEDS: Insulin Lispro 100 UNIT/ML INSULN.PEN SC ×7 (09:36→21:00)
[2021-03-07] MEDS: dexAMETHasone 4 MG Tablet 6 MG PO (09:37)
[2021-03-07] MEDS: amLODIPine 10 MG Tablet PO (09:38)
[2021-03-07] MEDS: Ascorbic Acid 500 MG Tablet PO (09:38)
[2021-03-07] MEDS: Enoxaparin 40 MG/0.4 ML Syringe SC (09:38)
--- NOTE | 2021-03-07 11:12 | CASEMGMT ---
MOHINDER CELAYA note: MOHINDER CELAYA placed call to pt's , as pt had told this MOHINDER CELAYA yesterday that I could call her to review discharge planning with her. made aware Dr Guzman's office is able to see pt as pt's PCP. Discussed importance w/ for pt to f/u w/Dr Guzman re: high blood pressure and diabetes. also made aware pt will be given script for glucometer and advised they talk w/pharmacy where they get the glucometer from to have them review use of glucometer with them. Discussed w/ that pt may need oxygen when he discharges home and reviewed list of local DME companies. states, Use the one that's closest there by the hospital. Also discussed with that a pulse ox is recommended to monitor pt's oxygen levels once pt returns home. states she has been feeling well and is not having any symptoms of COVID. Discussed importance of quarantining and isolating from pt when he returns home, such as using separate bedrooms and bathrooms. She voices understanding and states, We have been doing that all along. She states they have friends that can bring groceries and supplies if needed. She denies having any further questions and voices appreciation for the call. Apollo BURNHAM RN, CM
[2021-03-07 11:30] LABS: Bedside Glucose 365 mg/dL (70-110)
--- NOTE | 2021-03-07 12:25 | PN.HOSP_ITS ---
Subjective Subjective Breathing okay, but has been been transition to air Vo overnight Objective Data Objective Data Vital Signs: Vital Signs Temp Pulse Resp BP Pulse Ox 97.7 F L 90 22 H 170/90 H 90 03/07/21 09:31 03/07/21 09:31 03/07/21 09:31 03/07/21 09:31 03/07/21 09:31 Oxygen Flow Rate (L/min) 60 Oxygen Delivery Method Airvo Weight: 226 lb 6.389 oz Body Mass Index (BMI) 34.4 Intake & Output: Intake and Output for Last 24 Hours 03/06/21 03/07/21 03/08/21 03:59 03:59 03:59 Intake Total 800 / 800 900 / 900 Output Total 900 / 900 200 / 200 Balance 800 / 800 0 / 0 -200 / -200 Lab / Micro Data Result Diagrams: 03/07/21 06:25 03/07/21 06:25 Labs: Laboratory Results - last 24 hr 03/06/21 16:49: POC Glucose 358 H 03/06/21 21:44: POC Glucose 355 H 03/07/21 06:25: WBC 11.2 H, RBC 5.48, Hgb 15.9, Hct 45.9, MCV 83.8, MCH 29.0, MCHC 34.6, RDW Std Deviation 36.5, RDW Coeff of Marcelle 11.9, Plt Count 269, MPV 11.9, Immature Gran % (Auto) 0.700, Neut % (Auto) 76.0 H, Lymph % (Auto) 10.8 L, [place] % (Auto) 12.2 H, Eos % (Auto) 0.0, Baso % (Auto) 0.3, Absolute Neuts (auto) 8.5 H, Absolute Lymphs (auto) 1.21, Nucleated RBC % 0 03/07/21 06:25: Sodium 131 L, Potassium 3.6, Chloride 94 L, Carbon Dioxide 26.0, Anion Gap 11, BUN 35 H, Creatinine 1.41 H, Estim Creat Clear Calc 43.79, Est GFR (MDRD) Af Amer 63, Est GFR (MDRD) Non-Af 52 L, BUN/Creatinine Ratio 24.8 H, Glucose 244 H, Calcium 8.9, Total Bilirubin 0.50, AST 49 H, ALT 82 H, Alkaline Phosphatase 87, Total Protein 6.8, Albumin 2.4 L, Globulin 4.4 H, Albumin/Globu izzy Ratio 0.5 L 03/07/21 08:03: POC Glucose 263 H 03/07/21 11:19: POC Glucose 365 H Micro: Microbiology 03/05/21 18:00 Urine, Clean Catch Legionella Antigen - Final 03/05/21 18:00 Urine, Clean Catch Streptococcus pneumoniae Antigen (M - Final 03/05/21 12:50 Nasal Secretion SARS-CoV-2 Antigen (Rapid) - Final SARS-CoV-2 (COVID 19) Physical Exam Narrative Const alert, oriented x3 and no apparent distress General Appearance: cooperative HEENT normocephalic and moist oral mucous membranes Eyes PERRL, EOMs intact bilaterally and conjunctivae normal Neck supple and no JVD Resp normal respiratory effort, no retractions and no use of accessory muscles Auscultation: diminished lung sounds; Negative for crackles, rales, rhonchi or wheezes Cardio regular rate, regular rhythm, S1 normal heart sound, S2 normal heart sound and no murmurs GI soft to palpation, non-tender and non-distended; Negative for hepatosplenomegaly Extremity no clubbing, cyanosis or edema Skin no rashes or lesions noted Neuro no focal motor deficits and no sensory deficits noted Psych affect normal Appearance: appropriate Assessment & Plan Assessment/Plan (1) Acute respiratory failure with hypoxia: (2) COVID-19: PLAN: 1. Acute hypoxic respiratory failure secondary to COVID-19 pneumonia ?Evaluate for underlying bacterial pneumonia but hold off on any antibiotics at this time. ?Given his increase in Airvo, will consult ID for baricitinib evaluation ? Continue with Decadron and remdesivir ? Continue to monitor renal function 2. Hypertension ?New diagnosis but likely chronic as patient does not follow-up with primary care physician ? Continue with amlodipine 10 mg, and start Coreg ?As needed clonidine 4. Chronic kidney disease stage IIIb ?Once again this is likely not acute as patient does not see a primary care physician ?Patient did receive IV contrast so caution with his kidney function. His kidney function does continue to get worse, may need to discontinue the remdesivir ?Patient will need to follow-up with nephrology as outpatient 5. Diabetes mellitus type 2 ?A1c of 10.8, will start him on insulin ? Accu-Cheks AC at bedtime ? We will continue to monitor make adjustments as necessary DVT: Lovenox Charges/Coding Visit Charges Inpatient E&M: 48732 Subs Hosp L2
--- NOTE | 2021-03-07 12:58 | PCM.CONS.GEN ---
Assessment & Plan Assessment/Plan (1) Acute respiratory failure with hypoxia: (2) COVID-19: PLAN: Sx since around 02/28. Unvaccinated. Isolate until 03/19/21. Recommend vaccine once out of iso. On dex, remdesivir. CT neg for PE. D-dimer 1.7, on lovenox 40mg daily, would recommend bid dosing. Discussed EUA and risks/benefits of baricitinib, we agree to start. Will follow, thank you HPI Consult Data Date of Consult: 03/07/21 HPI Narrative HPI Narrative: VANESA BARBOSA, is a 75 M who presented 03/05 with sx since around 02/28. Unvaccinated. C/o cough, fatigue, progressive dyspnea. at home asymptomatic. Came to ED, admitted on dex, remdesivir, now on airvo. Full ROS performed and neg except as noted above. [facility] Medical History Former smoker HTN (hypertension) Home Medications ascorbic acid (vitamin C) 500 mg PO DAILY 03/05/21 [History Last Taken 03/04/21] Allergy/AdvReac Type Severity Reaction Status Date / Time No Known Allergies Allergy Verified 03/05/21 12:10 Social History (Updated 03/05/21 @ 17:28 by Alise Zamora) Smoking Status: Former smoker alcohol intake: current alcohol intake frequency: a few times a month details: rarely on weekend substance use type: does not use Physical Exam Const alert, oriented x3 and no apparent distress General Appearance: cooperative Exam Limitations: no limitations HEENT normocephalic and head/scalp atraumatic Eyes PERRL and EOMs intact bilaterally Neck supple and No nodes Resp Auscultation: diminished lung sounds Cardio regular rate and regular rhythm GI normal to inspection, nondistended, normoactive bowel sounds Extremity no clubbing, cyanosis or edema Skin no rashes or lesions noted Neuro CN's II-XII intact bilaterally Lab / Micro Data Result Diagrams: 03/07/21 06:25 03/07/21 06:25 Labs: Laboratory Results - last 24 hr 03/06/21 16:49: POC Glucose 358 H 03/06/21 21:44: POC Glucose 355 H 03/07/21 06:25: WBC 11.2 H, RBC 5.48, Hgb 15.9, Hct 45.9, MCV 83.8, MCH 29.0, MCHC 34.6, RDW Std Deviation 36.5, RDW Coeff of Marcelle 11.9, Plt Count 269, MPV 11.9, Immature Gran % (Auto) 0.700, Neut % (Auto) 76.0 H, Lymph % (Auto) 10.8 L, [place] % (Auto) 12.2 H, Eos % (Auto) 0.0, Baso % (Auto) 0.3, Absolute Neuts (auto) 8.5 H, Absolute Lymphs (auto) 1.21, Nucleated RBC % 0 03/07/21 06:25: Sodium 131 L, Potassium 3.6, Chloride 94 L, Carbon Dioxide 26.0, Anion Gap 11, BUN 35 H, Creatinine 1.41 H, Estim Creat Clear Calc 43.79, Est GFR (MDRD) Af Amer 63, Est GFR (MDRD) Non-Af 52 L, BUN/Creatinine Ratio 24.8 H, Glucose 244 H, Calcium 8.9, Total Bilirubin 0.50, AST 49 H, ALT 82 H, Alkaline Phosphatase 87, Total Protein 6.8, Albumin 2.4 L, Globulin 4.4 H, Albumin/Globulin Ratio 0.5 L 03/07/21 08:03: POC Glucose 263 H 03/07/21 11:19: POC Glucose 365 H
[2021-03-07 16:30] LABS: Bedside Glucose 255 mg/dL (70-110)
[2021-03-07] MEDS: Carvedilol 3.125 MG TABLET PO (20:59)
[2021-03-07 21:16] LABS: Bedside Glucose 263 mg/dL (70-110)
[2021-03-08] VITALS (21 sets, daily range): BP systolic 147–180; BP diastolic 89–105; PULSE 59–81; RESP 12–30; TEMP 35.8–36.8; O2SAT 83–98
[2021-03-08] MEDS: cloNIDine HCl 0.1 MG Tablet 0.2 MG PO (02:45)
--- NOTE | 2021-03-08 07:08 | NURSING ---
Pt 80% on Airvo sitting chair when this nurse entered room. use of IS increased pt to 85%. increased Fi02 to 81% and pt up to 87 % when left his room. respiratory contacted to review patient.
[2021-03-08] MEDS: Insulin Lispro 100 UNIT/ML INSULN.PEN SC ×6 (08:04→21:44)
[2021-03-08 08:10] LABS: Bedside Glucose 241 mg/dL (70-110)
[2021-03-08] MEDS: Carvedilol 3.125 MG TABLET PO ×2 (08:29→21:42)
[2021-03-08] MEDS: dexAMETHasone 4 MG Tablet 6 MG PO (08:29)
[2021-03-08] MEDS: Enoxaparin 40 MG/0.4 ML Syringe SC (08:29)
[2021-03-08] MEDS: amLODIPine 10 MG Tablet PO (08:30)
[2021-03-08] MEDS: Ascorbic Acid 500 MG Tablet PO (08:30)
[2021-03-08 08:35] LABS: Absolute Lymphocyte Count 1.55 X10^3/uL (0.83-4.51); Absolute Neutrophil Count 11.6 X10^3/uL (2.0-7.7); Basophil# 0.05 X10^3/uL; Basophil% 0.3 % (0-1); Eosinophil# 0.01 X10^3/uL; Eosinophils% 0.1 % (0-5); Hematocrit 47.4 % (40-54); Hemoglobin 16.5 g/dL (13.0-16.5); Lymphocyte # 1.55 X10^3/ul (0.83-4.51); Lymphocyte % 10.4 % (19-41); Mean Corp Hgb Conc 34.8 g/dL (32-36); Mean Corpuscular Hgb 29.4 pg (27.0-32.0); Mean Corpuscular Volume 84.5 fL (80-94); Mean Platelet Vol. 11.3 fl (6.2-12.0); Monocyte# 1.57 X10^3/uL; Monocyte% 10.5 % (0-10); NRBC Flagged by Analyzer 0 % (0-5); Neutrophil # 11.62 X10^3/uL (2.7-7.7); Neutrophil % 77.6 % (47-70); POSITIVE DIFFERENTIAL YES; Platelet Count 207 K/mm3 (150-450); RBC Distribution Width CV 12.4 % (11.6-14.6); RBC Distribution Width SD 37.9 fl (35.1-43.9); Red Blood Count 5.61 M/mm3 (4.6-6.2)
[2021-03-08 08:40] LABS: Differential Indicated SCAN CRITERIA MET
[2021-03-08 09:01] LABS: ALB/GLOB Ratio 0.6 RATIO (0.9-2.4); AST(SGOT) 34 U/L (15-37); Alanine Aminotransfer ALT/SGPT 68 U/L (16-61); Albumin, Serum 2.5 g/dL (3.2-5.0); Alkaline Phosphatase 94 U/L (45-117); Anion Gap 11 (5-15); BUN 36 mg/dL (7-18); BUN/Creat Ratio 28.1 RATIO (10-20); Calcium,Total 9.2 mg/dL (8.5-10.1); Chloride 94 mmol/L (98-107); Creatinine, Serum 1.28 mg/dL (0.70-1.30); EST Glomerular Filtration Rate 58 mL/min (>60); Est Glom Filt Rate - Afr Amer 70 mL/min (>60); Estimated Creatinine Clearance 48.24 ml/min; Globulin 4.4 g/dL (2.2-4.2); Glucose 218 mg/dL (74-106); Potassium 3.6 mmol/L (3.5-5.1); Protein, Total 6.9 g/dL (6.4-8.2); Sodium Level 128 mmol/L (136-145)
[2021-03-08] MEDS: 0.9% Saline Lock 10 ML Syringe IV ×3 (10:36→20:23)
[2021-03-08 12:00] LABS: Bedside Glucose 189 mg/dL (70-110)
--- NOTE | 2021-03-08 12:35 | PN.HOSP_ITS ---
Subjective Subjective Doing well feels better after he was on the BiPAP for a little bit. I discussed with him that he will need to be on BiPAP whenever he sleeps Objective Data Objective Data Vital Signs: Vital Signs Temp Pulse Resp BP Pulse Ox 96.5 F L 64 28 H 161/105 H 98 03/08/21 07:54 03/08/21 10:00 03/08/21 08:35 03/08/21 07:54 03/08/21 12:26 Oxygen Flow Rate (L/min) 60 Oxygen Delivery Method Airvo Weight: 226 lb 6.389 oz Body Mass Index (BMI) 34.4 Intake & Output: Intake and Output for Last 24 Hours 03/07/21 03/08/21 03/09/21 03:59 03:59 03:59 Intake Total 900 / 900 1010 / 1010 100 / 100 Output Total 900 / 900 950 / 950 800 / 800 Balance 0 / 0 60 / 60 -700 / -700 Lab / Micro Data Result Diagrams: 03/08/21 07:56 03/08/21 07:56 Labs: Laboratory Results - last 24 hr 03/07/21 16:04: POC Glucose 255 H 03/07/21 20:59: POC Glucose 263 H 03/08/21 07:52: POC Glucose 241 H 03/08/21 07:56: WBC 15.0 H, RBC 5.61, Hgb 16.5, Hct 47.4, MCV 84.5, MCH 29.4, MCHC 34.8, RDW Std Deviation 37.9, RDW Coeff of Marcelle 12.4, Plt Count 207, MPV 11.3, Immature Gran % (Auto) 1.100 H, Neut % (Auto) 77.6 H, Lymph % (Auto) 10.4 L, [place] % (Auto) 10.5 H, Eos % (Auto) 0.1, Baso % (Auto) 0.3, Absolute Neuts (auto) 11.6 H, Absolute Lymphs (auto) 1.55, Nucleated RBC % 0, Diff Path Review June03/08/21 07:56: Sodium 128 L, Potassium 3.6, Chloride 94 L, Carbon Dioxide 23.0, Anion Gap 11, BUN 36 H, Creatinine 1.28, Estim Creat Clear Calc 48.24, Est GFR (MDRD) Af Amer 70, Est GFR (MDRD) Non-Af 58 L, BUN/Creatinine Ratio 28.1 H, Glucose 218 H, Calcium 9.2, Total Bilirubin 0.70, AST 34, ALT 68 H, Alkaline Phosphatase 94, Total Protein 6.9, Albumin 2.5 L, Globulin 4.4 H, Albumin/Globulin Ratio 0.6 L 03/08/21 11:48: POC Glucose 189 H Micro: Microbiology 03/05/21 18:00 Urine, Clean Catch Legionella Antigen - Final 03/05/21 18:00 Urine, Clean Catch Streptococcus pneumoniae Antigen (M - Final 03/05/21 12:50 Nasal Secretion SARS-CoV-2 Antigen (Rapid) - Final SARS-CoV-2 (COVID 19) Physical Exam Narrative Const alert, oriented x3 and no apparent distress General Appearance: cooperative HEENT normocephalic and moist oral mucous membranes Eyes PERRL, EOMs intact bilaterally and conjunctivae normal Neck supple and no JVD Resp normal respiratory effort, no retractions and no use of accessory muscles Auscultation: diminished lung sounds; minimal crackles, negative for rales, rhonchi or wheezes Cardio regular rate, regular rhythm, S1 normal heart sound, S2 normal heart sound and no murmurs GI soft to palpation, non-tender and non-distended; Negative for hepatosplenomegaly Extremity no clubbing, cyanosis or edema Skin no rashes or lesions noted Neuro no focal motor deficits and no sensory deficits noted Psych affect normal Appearance: appropriate Assessment & Plan Assessment/Plan (1) Acute respiratory failure with hypoxia: (2) COVID-19: PLAN: 1. Acute hypoxic respiratory failure secondary to COVID-19 pneumonia ?Evaluate for underlying bacterial pneumonia but hold off on any antibiotics at this time. ?Given his increase in Airvo, will consult ID for baricitinib evaluation ? Continue with BiPAP whenever he sleeps and Airvo whenever he is awake ? We will trial him on a dose of Lasix now that his creatinine is improved ? Continue with Decadron and remdesivir ? Continue to monitor renal function 2. Hypertension ?New diagnosis but likely chronic as patient does not follow-up with primary care physician ? Continue with amlodipine 10 mg, and start Coreg ?As needed clonidine 4. Chronic kidney disease stage IIIb ?Once again this is likely not acute as patient does not see a primary care physician ?Patient did receive IV contrast so caution with his kidney function. His kidney function does continue to get worse, may need to discontinue the remdesi vir ?Patient will need to follow-up with nephrology as outpatient 5. Diabetes mellitus type 2 ?A1c of 10.8, will start him on insulin ? Accu-Cheks AC at bedtime ? We will continue to monitor make adjustments as necessary DVT: Lovenox Charges/Coding Visit Charges Inpatient E&M: 35447 Subs Hosp L2
[2021-03-08] MEDS: Furosemide 20 MG/2 ML VIAL IV (14:28)
--- NOTE | 2021-03-08 14:40 | EX.PCM.CONCC ---
Assessment & Plan Assessment/Plan (1) Acute respiratory failure with hypoxia: (2) COVID-19: PLAN: RECOMMENDATIONS: 1. Continue Decadron (03/16/2021), baricitinib (03/20/2021) and Remdesivir (03/09/2021) 2. Encourage Acapella, incentive spirometer and prone positioning as tolerated 3. Empiric BiPAP with sleep will be helpful. Sleep study as an outpatient 4. Lasix as necessary to achieve euvolemia 5. Daily labs to monitor for complications of therapy 6. Increase activity as tolerated IMPRESSIONS: 1. Acute hypoxic respiratory failure secondary to COVID 19 pneumonia Patient is on full medical therapy at this time. Patient is positive about 3 L over the course of the hospitalization. Diuretics as indicated. Would continue with BiPAP with sleep as patient does have a high risk factors for obstructive sleep apnea given BMI, male sex and age. Monitor labs to evaluate for complications. No fever has been noted for days. Leukocytosis likely secondary to steroid therapy. Monitor off antibiotic therapy. 2. Advanced age/probable COPD/unvaccinated status/hypertension Complicates care, management, recovery and prognosis. Patient will be given as needed aerosols, but was not wheezing on exam. Monitor blood pressure closely. Patient may be exacerbated by Decadron. HPI Consult Data Date of Consult: 03/08/21 HPI Narrative HPI Narrative: VANESA BARBOSA is a 75 M, with past medical history listed below, who presented to [facility] on 03/05/2021 secondary to progressive shortness of breath. Patient had been reporting fever, chills and body aches for almost a week. Patient states that most of the symptoms have resolved, but shortness of breath has progressed. Patient was not vaccinated against COVID-19, but reported no sick contacts. Patient did report some loose bowel movements, but no abdominal pain or vomiting. In the ER, patient was afebrile, but tachypneic as high as 24 breaths/min. Patient was also hypertensive at with a saturation of 84% on room air. Patient does not use supplemental oxygen at baseline. Laboratory work-up showed a white blood cell count of 7.6, hemoglobin of 15.8, D-dimer of 1.69 and a creatinine of 1.8. Glucose was elevated at 242 and liver enzymes were only slightly elevated. BNP was elevated at 161. Chest x-ray showed bilateral infiltrates, left greater than right and this was confirmed with a CTA of the chest but also confirmed that there was no PE present. Patient was given dexamethasone and admitted to the floor for further evaluation. Over the course of the hospitalization, patient's oxygen requirements have continued to worsen. Patient is currently on Airvo with BiPAP rescue with sleep. Patient subjectively feels slightly improved today compared to yesterday. Patient denies any chest pain and states his cough is productive of clear to white sputum. Patient reports a long history of smoking in the past, but has never been seen by facing slitter. Patient does not use inhalers at baseline. Patient does report episodes of bronchitis in the past, but is never required supplemental oxygen. Patient does occasionally have swelling of his legs, but does not report this as a consistent finding. Patient denies any exposure to asbestos or TB. 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 Review of systems otherwise negative from a constitutional, HEENT, respiratory, cardiovascular, GI, genitourinary, musculoskeletal, skin, neurologic, psychiatric and hematologic system unless stated above. [facility] Medical History Former smoker HTN (hypertension) Home Medications ascorbic acid (vitamin C) 500 mg PO DAILY 03/05/21 [History Last Taken 03/04/21] Allergy/AdvReac Type Severity Reaction Status Date / Time No Known Allergies Allergy Verified 03/05/21 12:10 Social History Smoking Status: Former smoker alcohol intake: current alcohol intake frequency: a few times a month details: rarely on weekend substance use type: does not use ROS ROS Narrative See HPI Physical Exam Const alert, oriented x3 and no apparent distress General Appearance: cooperative HEENT normocephalic and moist oral mucous membranes Eyes PERRL, EOMs intact bilaterally and conjunctivae normal Neck supple and no JVD Chest Chest: abnormal inspection of the chest increased A-P diameter and symmetrical chest wall rise; Negative for crepitus Resp normal respiratory effort, no retractions and no use of accessory muscles Auscultation: diminished lung sounds; Negative for rales, rhonchi or wheezes Cardio regular rate, regular rhythm, S1 normal heart sound, S2 normal heart sound and no murmurs GI soft to palpation, non-tender and non-distended; Negative for hepatosplenomegaly Extremity no clubbing, cyanosis or edema Skin no rashes or lesions noted Neuro no focal motor deficits and no sensory deficits noted Psych affect normal Appearance: appropriate Lab / Micro Data Result Diagrams: 03/08/21 07:56 03/08/21 07:56 Labs: Laboratory Results - last 24 hr 03/07/21 16:04: POC Glucose 255 H 03/07/21 20:59: POC Glucose 263 H 03/08/21 07:52: POC Glucose 241 H 03/08/21 07:56: WBC 15.0 H, RBC 5.61, Hgb 16.5, Hct 47.4, MCV 84.5, MCH 29.4, MCHC 34.8, RDW Std Deviation 37.9, RDW Coeff of Marcelle 12.4, Plt Count 207, MPV 11.3, Immature Gran % (Auto) 1.100 H, Neut % (Auto) 77.6 H, Lymph % (Auto) 10.4 L, [place] % (Auto) 10.5 H, Eos % (Auto) 0.1, Baso % (Auto) 0.3, Absolute Neuts (auto) 11.6 H, Absolute Lymphs (auto) 1.55, Nucleated RBC % 0, Diff Path Review June03/08/21 07:56: Sodium 128 L, Potassium 3.6, Chloride 94 L, Carbon Dioxide 23.0, Anion Gap 11, BUN 36 H, Creatinine 1.28, Estim Creat Clear Calc 48.24, Est GFR (MDRD) Af Amer 70, Est GFR (MDRD) Non-Af 58 L, BUN/Creatinine Ratio 28.1 H, Glucose 218 H, Calcium 9.2, Total Bilirubin 0.70, AST 34, ALT 68 H, Alkaline Phosphatase 94, Total Protein 6.9, Albumin 2.5 L, Globulin 4.4 H, Albumin/Globulin Ratio 0.6 L 03/08/21 11:48: POC Glucose 189 H Charges/Coding Visit Charges Inpatient E&M: 22543 Init Hosp L3
[2021-03-08 16:20] LABS: Bedside Glucose 222 mg/dL (70-110)
[2021-03-08] MEDS: Insulin Lispro 100 UNIT/ML INSULN.PEN 10 UNIT SC (17:37)
[2021-03-08 22:00] LABS: Bedside Glucose 214 mg/dL (70-110)
[2021-03-09] VITALS (23 sets, daily range): BP systolic 147–175; BP diastolic 89–113; PULSE 49–76; RESP 12–29; TEMP 36.3–36.8; O2SAT 90–96
[2021-03-09] MEDS: Potassium Chloride Oral Tablet 10 MEQ PO (00:24)
[2021-03-09 07:02] LABS: Absolute Lymphocyte Count 1.61 X10^3/uL (0.83-4.51); Absolute Neutrophil Count 9.6 X10^3/uL (2.0-7.7); Basophil# 0.03 X10^3/uL; Basophil% 0.2 % (0-1); Eosinophil# 0.02 X10^3/uL; Eosinophils% 0.2 % (0-5); Hematocrit 46.2 % (40-54); Hemoglobin 16.2 g/dL (13.0-16.5); Lymphocyte # 1.61 X10^3/ul (0.83-4.51); Lymphocyte % 12.4 % (19-41); Mean Corp Hgb Conc 35.1 g/dL (32-36); Mean Corpuscular Hgb 29.8 pg (27.0-32.0); Mean Corpuscular Volume 85.1 fL (80-94); Monocyte# 1.47 X10^3/uL; Monocyte% 11.3 % (0-10); NRBC Flagged by Analyzer 0 % (0-5); Neutrophil % 73.9 % (47-70); Platelet Count 213 K/mm3 (150-450); RBC Distribution Width CV 12.3 % (11.6-14.6); RBC Distribution Width SD 38.1 fl (35.1-43.9); Red Blood Count 5.43 M/mm3 (4.6-6.2)
[2021-03-09 07:26] LABS: ALB/GLOB Ratio 0.6 RATIO (0.9-2.4); AST(SGOT) 29 U/L (15-37); Alanine Aminotransfer ALT/SGPT 57 U/L (16-61); Albumin, Serum 2.4 g/dL (3.2-5.0); Alkaline Phosphatase 85 U/L (45-117); Anion Gap 10 (5-15); BUN 36 mg/dL (7-18); BUN/Creat Ratio 30.3 RATIO (10-20); Calcium,Total 8.8 mg/dL (8.5-10.1); Chloride 95 mmol/L (98-107); Creatinine, Serum 1.19 mg/dL (0.70-1.30); EST Glomerular Filtration Rate 63 mL/min (>60); Est Glom Filt Rate - Afr Amer 77 mL/min (>60); Estimated Creatinine Clearance 51.89 ml/min; Glucose 143 mg/dL (74-106); Magnesium 2.3 mg/dL (1.6-2.6); Potassium 3.6 mmol/L (3.5-5.1); Protein, Total 6.4 g/dL (6.4-8.2); Sodium Level 132 mmol/L (136-145)
[2021-03-09] MEDS: Insulin Lispro 100 UNIT/ML INSULN.PEN SC ×3 (08:21→21:38)
[2021-03-09] MEDS: Insulin Lispro 100 UNIT/ML INSULN.PEN 10 UNIT SC ×3 (08:21→17:04)
[2021-03-09] MEDS: Carvedilol 3.125 MG TABLET PO ×2 (08:22→21:38)
[2021-03-09] MEDS: dexAMETHasone 4 MG Tablet 6 MG PO (08:22)
[2021-03-09] MEDS: amLODIPine 10 MG Tablet PO (08:23)
[2021-03-09] MEDS: Ascorbic Acid 500 MG Tablet PO (08:24)
[2021-03-09] MEDS: Enoxaparin 40 MG/0.4 ML Syringe SC (08:25)
[2021-03-09 08:45] LABS: Bedside Glucose 162 mg/dL (70-110)
--- NOTE | 2021-03-09 09:39 | PCM.PN.INT ---
Assessment & Plan Assessment/Plan (1) Acute respiratory failure with hypoxia: (2) COVID-19: PLAN: RECOMMENDATIONS: 1. Continue Decadron (03/16/2021), baricitinib (03/20/2021) and Remdesivir (03/09/2021) 2. Encourage Acapella, incentive spirometer and prone positioning as tolerated 3. Empiric BiPAP with sleep will be helpful. Sleep study as an outpatient 4. Lasix as necessary to achieve euvolemia. Challenge today 5. Daily labs to monitor for complications of therapy 6. Increase activity as tolerated IMPRESSIONS: 1. Acute hypoxic respiratory failure secondary to COVID 19 pneumonia Patient is on full medical therapy at this time. Patient is positive about 3 L over the course of the hospitalization. Order diuretics today. Would continue with BiPAP with sleep as patient does have a high risk factors for obstructive sleep apnea given BMI, male sex and age. Monitor labs to evaluate for complications. No fever has been noted for days. Leukocytosis likely secondary to steroid therapy. Monitor off antibiotic therapy. 2. Advanced age/probable COPD/unvaccinated status/hypertension Complicates care, management, recovery and prognosis. Patient will be given as needed aerosols, but was not wheezing on exam. Monitor blood pressure closely. Patient may be exacerbated by Decadron. Subjective Subjective Patient did okay overnight. No acute issues were reported. Patient subjectively feels improved compared to previous. Patient is not reporting any chest pain or hemoptysis. Objective Data Objective Data Vital Signs: Vital Signs Temp Pulse Resp BP Pulse Ox 36.4 C L 67 22 H 165/112 H 90 03/09/21 08:16 03/09/21 08:16 03/09/21 08:34 03/09/21 08:16 03/09/21 08:55 Oxygen Flow Rate (L/min) 91 Oxygen Delivery Method Airvo Weight: 102.693 kg Body Mass Index (BMI) 34.4 Intake & Output: Intake and Output for Last 24 Hours 03/07/21 03/08/21 03/09/21 23:59 23:59 23:59 Intake Total 610 / 1010 1230 / 1230 Output Total 450 / 950 2125 / 2125 Balance 160 / 60 -895 / -895 Lab / Micro Data Result Diagrams: 03/09/21 06:05 03/09/21 06:05 Labs: Laboratory Results - last 24 hr 03/08/21 11:48: POC Glucose 189 H 03/08/21 16:12: POC Glucose 222 H 03/08/21 21:41: POC Glucose 214 H 03/09/21 06:05: WBC 13.0 H, RBC 5.43, Hgb 16.2, Hct 46.2, MCV 85.1, MCH 29.8, MCHC 35.1, RDW Std Deviation 38.1, RDW Coeff of Marcelle 12.3, Plt Count 213, MPV 11.0, Immature Gran % (Auto) 2.000 H, Neut % (Auto) 73.9 H, Lymph % (Auto) 12.4 L, [place] % (Auto) 11.3 H, Eos % (Auto) 0.2, Baso % (Auto) 0.2, Absolute Neuts (auto) 9.6 H, Absolute Lymphs (auto) 1.61, Nucleated RBC % 0 03/09/21 06:05: Sodium 132 L, Potassium 3.6, Chloride 95 L, Carbon Dioxide 27.0, Anion Gap 10, BUN 36 H, Creatinine 1.19, Estim Creat Clear Calc 51.89, Est GFR (MDRD) Af Amer 77, Est GFR (MDRD) Non-Af 63, BUN/Creatinine Ratio 30.3 H, Glucose 143 H, Calcium 8.8, Magnesium 2.3, Total Bilirubin 0.70, AST 29, ALT 57, Alkaline Phosphatase 85, Total Protein 6.4, Albumin 2.4 L, Globulin 4.0, Albumin/Globulin Ratio 0.6 L 03/09/21 08:12: POC Glucose 162 H Micro: Microbiology 03/05/21 18:00 Urine, Clean Catch Legionella Antigen - Final 03/05/21 18:00 Urine, Clean Catch Streptococcus pneumoniae Antigen (M - Final 03/05/21 12:50 Nasal Secretion SARS-CoV-2 Antigen (Rapid) - Final SARS-CoV-2 (COVID 19) Physical Exam Const alert, oriented x3 and no apparent distress Constitutional Narrative: Sitting in the chair without conversational dyspnea General Appearance: cooperative HEENT normocephalic and moist oral mucous membranes Eyes PERRL, EOMs intact bilaterally and conjunctivae normal Neck supple and no JVD Chest Chest: abnormal inspection of the chest increased A-P diameter and symmetrical chest wall rise; Negative for crepitus Resp normal respiratory effort, no retractions and no use of accessory muscles Auscultation: diminished lung sounds; Negative for rales, rhonchi or wheezes Cardio regular rate, regular rhythm, S1 normal heart sound, S2 normal heart sound and no murmurs GI soft to palpation, non-tender and non-distended; Negative for hepatosplenomegaly Extremity no clubbing, cyanosis or edema Skin no rashes or lesions noted Neuro no focal motor deficits and no sensory deficits noted Psych affect normal Appearance: appropriate Charges/Coding Visit Charges Inpatient E&M: 95046 Subs Hosp L2
[2021-03-09] MEDS: Furosemide 20 MG/2 ML VIAL IV (10:16)
[2021-03-09] MEDS: 0.9% Saline Lock 10 ML Syringe IV ×2 (10:16→21:37)
[2021-03-09] MEDS: Potassium Chloride Oral Tablet 20 MEQ 40 MEQ PO (10:16)
[2021-03-09 11:50] LABS: Bedside Glucose 164 mg/dL (70-110)
--- NOTE | 2021-03-09 15:11 | PN.HOSP_ITS ---
Subjective Subjective Patient was seen and examined today, he does not complain of any shortness of breath at rest, he is sitting in a chair in his room, patient denies any fevers or chills. Patient currently is on Airvo at 65% oxygen. Objective Data Objective Data Vital Signs: Vital Signs Temp Pulse Resp BP Pulse Ox 98.2 F 66 20 H 147/89 H 94 03/09/21 14:00 03/09/21 14:00 03/09/21 14:00 03/09/21 14:00 03/09/21 14:00 Oxygen Flow Rate (L/min) 91 Oxygen Delivery Method Airvo Weight: 102.693 kg Body Mass Index (BMI) 34.4 Intake & Output: Intake and Output for Last 24 Hours 03/07/21 03/08/21 03/09/21 23:59 23:59 23:59 Intake Total 610 / 1010 1230 / 1230 1630 / 1630 Output Total 450 / 950 2125 / 2125 700 / 700 Balance 160 / 60 -895 / -895 930 / 930 Lab / Micro Data Result Diagrams: 03/10/21 06:05 03/10/21 06:05 Labs: Laboratory Results - last 24 hr 03/08/21 16:12: POC Glucose 222 H 03/08/21 21:41: POC Glucose 214 H 03/09/21 06:05: WBC 13.0 H, RBC 5.43, Hgb 16.2, Hct 46.2, MCV 85.1, MCH 29.8, MCHC 35.1, RDW Std Deviation 38.1, RDW Coeff of Marcelle 12.3, Plt Count 213, MPV 11.0, Immature Gran % (Auto) 2.000 H, Neut % (Auto) 73.9 H, Lymph % (Auto) 12.4 L, [place] % (Auto) 11.3 H, Eos % (Auto) 0.2, Baso % (Auto) 0.2, Absolute Neuts (auto) 9.6 H, Absolute Lymphs (auto) 1.61, Nucleated RBC % 0 03/09/21 06:05: Sodium 132 L, Potassium 3.6, Chloride 95 L, Carbon Dioxide 27.0, Anion Gap 10, BUN 36 H, Creatinine 1.19, Estim Creat Clear Calc 51.89, Est GFR (MDRD) Af Amer 77, Est GFR (MDRD) Non-Af 63, BUN/Creatinine Ratio 30.3 H, Glucose 143 H, Calcium 8.8, Magnesium 2.3, Total Bilirubin 0.70, AST 29, ALT 57, Alkaline Phosphatase 85, Total Protein 6.4, Albumin 2.4 L, Globulin 4.0, Albumin/Globulin Ratio 0.6 L 03/09/21 08:12: POC Glucose 162 H 03/09/21 11:33: POC Glucose 164 H Micro: Microbiology 03/05/21 18:00 Urine, Clean Catch Legionella Antigen - Final 03/05/21 18:00 Urine, Clean Catch Streptococcus pneumoniae Antigen (M - Final 03/05/21 12:50 Nasal Secretion SARS-CoV-2 Antigen (Rapid) - Final SARS-CoV-2 (COVID 19) Physical Exam Const alert, oriented x3 and no apparent distress General Appearance: cooperative, well kempt and well developed Orientation / Consciousness: awake, oriented to person, oriented to place and oriented to time HEENT normocephalic and moist oral mucous membranes Eyes PERRL, EOMs intact bilaterally and conjunctivae normal Neck nuchal rigidity, supple, no JVD and thyroid normal General: trachea midline Resp normal respiratory effort, no retractions, no use of accessory muscles and clear to auscultation bilaterally Auscultation: Negative for rales, rhonchi or wheezes Cardio regular rate, regular rhythm, S1 normal heart sound, S2 normal heart sound, no murmurs, no rub and no gallops GI normal to inspection, nondistended, normoactive bowel sounds, soft to palpation, non-tender and non-distended Extremity no clubbing, cyanosis or edema Skin no rashes or lesions noted General Skin Exam: no breakdown Neuro oriented x3, CN's II-XII intact bilaterally, no focal motor deficits and no sensory deficits noted Sensorium / Orientation: awake and alert Speech: speech normal Psych thought process normal and affect normal Assessment & Plan Assessment/Plan (1) Acute respiratory failure with hypoxia: PLAN: 1. COVID-19 pneumonia-patient is currently on Decadron, baricit inib, patient finished his course of remdesivir today #2 acute hypoxic respiratory failure-pulse ox will be monitored #3 essential hypertension-patient is currently on oral blood pressure medication at this time, continue to monitor blood pressure, make adjustments in blood pressure medications as needed #4 chronic kidney disease stage IIIb-labs will be monitored #5 type 2 diabetes-patient currently on sliding scale insulin and basal insulin, blood sugars will be monitored, sliding scale insulin will be used Charges/Coding Visit Charges Inpatient E&M: 30452 Subs Hosp L2
[2021-03-09 16:50] LABS: Bedside Glucose 113 mg/dL (70-110)
[2021-03-09 21:55] LABS: Bedside Glucose 234 mg/dL (70-110)
[2021-03-10] VITALS (16 sets, daily range): BP systolic 150–167; BP diastolic 90–104; PULSE 56–69; RESP 12–26; TEMP 36.5–36.7; O2SAT 91–97
[2021-03-10 06:56] LABS: Absolute Lymphocyte Count 1.52 X10^3/uL (0.83-4.51); Basophil# 0.05 X10^3/uL; Basophil% 0.4 % (0-1); Eosinophil# 0.04 X10^3/uL; Eosinophils% 0.4 % (0-5); Hematocrit 45.6 % (40-54); Hemoglobin 15.7 g/dL (13.0-16.5); Lymphocyte # 1.52 X10^3/ul (0.83-4.51); Lymphocyte % 13.5 % (19-41); Mean Corp Hgb Conc 34.4 g/dL (32-36); Mean Corpuscular Hgb 29.1 pg (27.0-32.0); Mean Corpuscular Volume 84.6 fL (80-94); Mean Platelet Vol. 10.4 fl (6.2-12.0); Monocyte% 11.5 % (0-10); NRBC Flagged by Analyzer 0 % (0-5); Neutrophil # 7.95 X10^3/uL (2.7-7.7); Neutrophil % 70.3 % (47-70); Platelet Count 222 K/mm3 (150-450); RBC Distribution Width CV 12.2 % (11.6-14.6); RBC Distribution Width SD 37.1 fl (35.1-43.9); Red Blood Count 5.39 M/mm3 (4.6-6.2); White Blood Count 11.3 K/mm3 (4.4-11.0)
[2021-03-10 07:16] LABS: ALB/GLOB Ratio 0.6 RATIO (0.9-2.4); AST(SGOT) 23 U/L (15-37); Alanine Aminotransfer ALT/SGPT 48 U/L (16-61); Albumin, Serum 2.3 g/dL (3.2-5.0); Alkaline Phosphatase 81 U/L (45-117); Anion Gap 9 (5-15); BUN 31 mg/dL (7-18); BUN/Creat Ratio 28.7 RATIO (10-20); Calcium,Total 8.5 mg/dL (8.5-10.1); Chloride 94 mmol/L (98-107); Creatinine, Serum 1.08 mg/dL (0.70-1.30); EST Glomerular Filtration Rate 71 mL/min (>60); Est Glom Filt Rate - Afr Amer 86 mL/min (>60); Estimated Creatinine Clearance 57.18 ml/min; Globulin 3.9 g/dL (2.2-4.2); Glucose 132 mg/dL (74-106); Potassium 3.7 mmol/L (3.5-5.1); Protein, Total 6.2 g/dL (6.4-8.2); Sodium Level 130 mmol/L (136-145)
[2021-03-10] MEDS: Insulin Lispro 100 UNIT/ML INSULN.PEN 10 UNIT SC ×2 (08:42→12:34)
[2021-03-10 08:50] LABS: Bedside Glucose 133 mg/dL (70-110)
[2021-03-10] MEDS: dexAMETHasone 4 MG Tablet 6 MG PO (10:36)
[2021-03-10] MEDS: Carvedilol 3.125 MG TABLET PO (10:36)
[2021-03-10] MEDS: Enoxaparin 40 MG/0.4 ML Syringe SC (10:37)
[2021-03-10] MEDS: amLODIPine 10 MG Tablet PO (10:37)
[2021-03-10] MEDS: Ascorbic Acid 500 MG Tablet PO (10:38)
[2021-03-10] MEDS: Insulin Lispro 100 UNIT/ML INSULN.PEN SC ×2 (12:35→22:14)
[2021-03-10 13:40] LABS: Pathologist Review Reviewed
[2021-03-10 14:46] LABS: Bedside Glucose 209 mg/dL (70-110)
[2021-03-10 16:11] LABS: Bedside Glucose 101 mg/dL (70-110)
--- NOTE | 2021-03-10 19:14 | PN.HOSP_ITS ---
Subjective Subjective Patient was seen and examined today, he is currently on Airvo at 63% oxygen. Patient does not complain of any shortness of breath at rest, he has no complaints of any fevers or chills Objective Data Objective Data Vital Signs: Vital Signs Temp Pulse Resp BP Pulse Ox 97.9 F 66 24 H 155/90 H 94 03/10/21 15:57 03/10/21 16:09 03/10/21 16:09 03/10/21 15:57 03/10/21 16:09 Oxygen Flow Rate (L/min) 50 Oxygen Delivery Method Airvo Weight: 102.693 kg Body Mass Index (BMI) 34.4 Intake & Output: Intake and Output for Last 24 Hours 03/08/21 03/09/21 03/10/21 23:59 23:59 23:59 Intake Total 1230 / 1230 2630 / 2630 400 / 400 Output Total 2125 / 2125 2125 / 2125 725 / 725 Balance -895 / -895 505 / 505 -325 / -325 Lab / Micro Data Result Diagrams: 03/10/21 06:05 03/10/21 06:05 Labs: Laboratory Results - last 24 hr 03/08/21 07:56: Diff Path Review Reviewed 03/09/21 21:34: POC Glucose 234 H 03/10/21 06:05: WBC 11.3 H, RBC 5.39, Hgb 15.7, Hct 45.6, MCV 84.6, MCH 29.1, MCHC 34.4, RDW Std Deviation 37.1, RDW Coeff of Marcelle 12.2, Plt Count 222, MPV 10.4, Immature Gran % (Auto) 3.900 H, Neut % (Auto) 70.3 H, Lymph % (Auto) 13.5 L, [place] % (Auto) 11.5 H, Eos % (Auto) 0.4, Baso % (Auto) 0.4, Absolute Neuts (auto) 8.0 H, Absolute Lymphs (auto) 1.52, Nucleated RBC % 0 03/10/21 06:05: Sodium 130 L, Potassium 3.7, Chloride 94 L, Carbon Dioxide 27.0, Anion Gap 9, BUN 31 H, Creatinine 1.08, Estim Creat Clear Calc 57.18, Est GFR (MDRD) Af Amer 86, Est GFR (MDRD) Non-Af 71, BUN/Creatinine Ratio 28.7 H, Glucose 132 H, Calcium 8.5, Total Bilirubin 0.60, AST 23, ALT 48, Alkaline Phosphatase 81, Total Protein 6.2 L, Albumin 2.3 L, Globulin 3.9, Albumin/Globulin Ratio 0.6 L 03/10/21 08:36: POC Glucose 133 H 03/10/21 12:31: POC Glucose 209 H 03/10/21 15:49: POC Glucose 101 Micro: Microbiology 03/05/21 18:00 Urine, Clean Catch Legionella Antigen - Final 03/05/21 18:00 Urine, Clean Catch Streptococcus pneumoniae Antigen (M - Final 03/05/21 12:50 Nasal Secretion SARS-CoV-2 Antigen (Rapid) - Final SARS-CoV-2 (COVID 19) Physical Exam Const alert, oriented x3 and no apparent distress General Appearance: cooperative, well kempt and well developed Orientation / Consciousness: awake, oriented to person, oriented to place and oriented to time HEENT normocephalic, head/scalp atraumatic and moist oral mucous membranes Head and Scalp: normocephalic Eyes PERRL, EOMs intact bilaterally and conjunctivae normal Neck nuchal rigidity, supple, no JVD and thyroid normal General: trachea midline Resp normal respiratory effort, no retractions, no use of accessory muscles and clear to auscultation bilaterally Resp Narrative: Breath sounds are diminished bilaterally Auscultation: Negative for rales, rhonchi or wheezes Cardio regular rate, regular rhythm, S1 normal heart sound, S2 normal heart sound, no murmurs, no rub and no gallops GI normal to inspection, nondistended, normoactive bowel sounds, soft to palpation, non-tender and non-distended Extremity no clubbing, cyanosis or edema Skin no rashes or lesions noted General Skin Exam: no breakdown Neuro oriented x3, CN's II-XII intact bilaterally, no focal motor deficits and no sensory deficits noted Sensorium / Orientation: awake and alert Speech: speech normal Psych thought process normal and affect normal Assessment & Plan Assessment/Plan (1) Acute respiratory failure with hypoxia: PLAN: 1. COVID-19 pneumonia-patient is currently on Decadron, ba ricitinib, patient finished his course of remdesivir #2 acute hypoxic respiratory failure-pulse ox will be monitored #3 essential hypertension-patient is currently on oral blood pressure medication at this time, continue to monitor blood pressure, make adjustments in blood pressure medications as needed #4 chronic kidney disease stage IIIb-labs will be monitored #5 type 2 diabetes-patient currently on sliding scale insulin and basal insulin, blood sugars will be monitored, sliding scale insulin will be used Charges/Coding Visit Charges Inpatient E&M: 26335 Subs Hosp L2
[2021-03-10] MEDS: Carvedilol 6.25 MG Tablet PO (22:16)
[2021-03-10 22:31] LABS: Bedside Glucose 162 mg/dL (70-110)
[2021-03-11] VITALS (14 sets, daily range): BP systolic 137–173; BP diastolic 85–96; PULSE 54–69; RESP 18–20; TEMP 36.6–36.7; O2SAT 93–97
[2021-03-11 06:18] LABS: Hematocrit 43.9 % (40-54); Hemoglobin 15.6 g/dL (13.0-16.5); Mean Corp Hgb Conc 35.5 g/dL (32-36); Mean Corpuscular Hgb 30.1 pg (27.0-32.0); Mean Corpuscular Volume 84.6 fL (80-94); Mean Platelet Vol. 10.1 fl (6.2-12.0); POSITIVE COUNT YES; POSITIVE MORPHOLOGY YES; Platelet Count 230 K/mm3 (150-450); RBC Distribution Width CV 12.4 % (11.6-14.6); Red Blood Count 5.19 M/mm3 (4.6-6.2); White Blood Count 11.4 K/mm3 (4.4-11.0)
[2021-03-11 06:27] LABS: Differential Indicated MANUAL DIFF
[2021-03-11 06:45] LABS: ALB/GLOB Ratio 0.6 RATIO (0.9-2.4); AST(SGOT) 19 U/L (15-37); Alanine Aminotransfer ALT/SGPT 39 U/L (16-61); Albumin, Serum 2.2 g/dL (3.2-5.0); Alkaline Phosphatase 73 U/L (45-117); Anion Gap 8 (5-15); BUN 29 mg/dL (7-18); BUN/Creat Ratio 28.2 RATIO (10-20); Calcium,Total 8.3 mg/dL (8.5-10.1); Chloride 95 mmol/L (98-107); Creatinine, Serum 1.03 mg/dL (0.70-1.30); EST Glomerular Filtration Rate 75 mL/min (>60); Est Glom Filt Rate - Afr Amer 90 mL/min (>60); Estimated Creatinine Clearance 59.95 ml/min; Globulin 3.5 g/dL (2.2-4.2); Glucose 97 mg/dL (74-106); Potassium 3.9 mmol/L (3.5-5.1); Protein, Total 5.7 g/dL (6.4-8.2); Sodium Level 130 mmol/L (136-145)
[2021-03-11 06:54] LABS: Absolute Neutrophil Count 8.7 X10^3/uL (2.0-7.7)
[2021-03-11 06:55] LABS: Absolute Lymphocyte Count 1.94 X10^3/uL (0.83-4.51); Lymphocyte 17 % (19-41); Monocyte 4 % (0-10); Myelocyte 3 % (0-0); Neutrophil-Band 8 % (0-5); Neutrophil-Segmented 68 % (47-70); Platelet Estimate ADEQUATE (ADEQ); Red Cell Morphology NORM C+C NORMAL (NORM C&C); Total Cells Counted 100 (MANUAL DIFF)
--- NOTE | 2021-03-11 07:36 | PN.CC_ITS ---
Assessment & Plan Assessment/Plan (1) Acute respiratory failure with hypoxia: (2) COVID-19: PLAN: RECOMMENDATIONS: 1. Continue Decadron (03/16/2021) and baricitinib (03/20/2021) 2. Encourage Acapella, incentive spirometer and prone positioning as tolerated 3. Empiric BiPAP with sleep would be helpful. Sleep study as an outpatient. 4. Diuretics, as needed, to maintain euvolemic state. 5. Wean supplemental oxygen for saturations greater than 90%. 6. Given improving oxygenation status, will sign off. Please call with any additional questions. IMPRESSIONS: 1. Acute hypoxic respiratory failure secondary to COVID 19 pneumonia The patient is improving from a respiratory perspective. He is currently maintaining appropriate saturations on nasal cannula supplemental O2. He has completed remdesivir and remains on Decadron and baricitinib. Continue to encourage incentive spirometer use and mobilize patient as tolerated. Diuretics can be utilized as needed to maintain euvolemic state. Continue prophylactic Lovenox. Perform walking oximetry study prior to consideration for discharge home. 2. Advanced age/probable COPD/unvaccinated status/hypertension Complicates care, management, recovery and prognosis. Continue home medications as indicated. This note was generated with [employer] dictation software. It may contain incorrect words, spelling, and punctuation that were not noted in checking the note before signing. Subjective Subjective The patient was seen and examined at the bedside this morning. Events from the last 24 hours have been reviewed. The patient is currently afebrile, hemodynamically stable and maintaining appropriate oxygen saturations on 5 L/min via nasal cannula. The patient remains on prophylactic Lovenox, Decadron and baricitinib. Liver and renal function are stable. Objective Data Objective Data The patient's most recent lab work, culture data and imaging studies have all been personally reviewed. Rapid coronavirus antigen testing was positive on March 05. Vital Signs: Vital Signs Temp Pulse Resp BP Pulse Ox 97.9 F 60 18 160/96 H 93 03/11/21 01:28 03/11/21 06:55 03/11/21 06:55 03/11/21 01:28 03/11/21 06:56 Oxygen Flow Rate (L/min) 50 Oxygen Delivery Method Airvo Weight: 102.693 kg Body Mass Index (BMI) 34.4 Intake & Output: Intake and Output for Last 24 Hours 03/09/21 03/10/21 03/11/21 23:59 23:59 23:59 Intake Total 2630 / 2630 400 / 1000 600 / 600 Output Total 2125 / 2125 725 / 1450 725 / 725 Balance 505 / 505 -325 / -450 -125 / -125 Lab / Micro Data Attestation: I reviewed the patient's lab results. Result Diagrams: 03/11/21 05:40 03/11/21 05:40 Labs: Laboratory Results - last 24 hr 03/08/21 07:56: Diff Path Review Reviewed 03/10/21 08:36: POC Glucose 133 H 03/10/21 12:31: POC Glucose 209 H 03/10/21 15:49: POC Glucose 101 03/10/21 22:06: POC Glucose 162 H 03/11/21 05:40: WBC 11.4 H, RBC 5.19, Hgb 15.6, Hct 43.9, MCV 84.6, MCH 30.1, MCHC 35.5, RDW Std Deviation 38.0, RDW Coeff of Marcelle 12.4, Plt Count 230, MPV 10.1, Neut % (Auto) Not Reportable, Absolute Neuts (auto) 8.7 H, Absolute Lymphs (auto) 1.94, Total Counted 100, Neutrophils % (Manual) 68, Band Neutrophils % 8 H, Lymphocytes % (Manual) 17 L, Monocytes % (Manual) 4, Myelocytes % 3 H, Diff Path Review May , Platelet Estimate ADEQUATE, RBC Morphology NORM C+C 03/11/21 05:40: Sodium 130 L, Potassium 3.9, Chloride 95 L, Carbon Dioxide 27.0, Anion Gap 8, BUN 29 H, Creatinine 1.03, Estim Creat Clear Calc 59.95, Est GFR (MDRD) Af Amer 90, Est GFR (MDRD) Non-Af 75, BUN/Creatinine Ratio 28.2 H, Glucose 97, Calcium 8.3 L, Total Bilirubin 0.50, AST 19, ALT 39, Alkaline Phosphatase 73, Total Protein 5.7 L, Albumin 2.2 L, Globulin 3.5, Albumin/Globulin Ratio 0.6 L Micro: Microbiology 03/05/21 18:00 Urine, Clean Catch Legionella Antigen - Final 03/05/21 18:00 Urine, Clean Catch Streptococcus pneumoniae Antigen (M - Final 03/05/21 12:50 Nasal Secretion SARS-CoV-2 Antigen (Rapid) - Final SARS-CoV-2 (COVID 19) Physical Exam Const alert and no apparent distress Constitutional Narrative: Sitting in bedside recliner. General Appearance: cooperative Nutritional Appearance: obese HEENT normocephalic, head/scalp atraumatic and moist oral mucous membranes Eyes PERRL, EOMs intact bilaterally and conjunctivae normal Neck supple General: trachea midline Chest inspection of chest normal Resp Auscultation: diminished lung sounds Cardio regular rate and regular rhythm GI normal to inspection, nondistended, normoactive bowel sounds Extremity no clubbing, cyanosis or edema Skin no rashes or lesions noted Neuro CN's II-XII intact bilaterally, moves all extremities and no focal motor deficits Psych cooperative and affect normal Charges/Coding Visit Charges Inpatient E&M: 30605 Subs Hosp L2
[2021-03-11] MEDS: Carvedilol 6.25 MG Tablet PO ×2 (09:14→21:13)
[2021-03-11] MEDS: dexAMETHasone 4 MG Tablet 6 MG PO (09:14)
[2021-03-11] MEDS: Enoxaparin 40 MG/0.4 ML Syringe SC (09:15)
[2021-03-11] MEDS: amLODIPine 10 MG Tablet PO (09:16)
[2021-03-11] MEDS: Ascorbic Acid 500 MG Tablet PO (09:16)
[2021-03-11 12:00] LABS: Bedside Glucose 87 mg/dL (70-110)
[2021-03-11 12:00] LABS: Bedside Glucose 198 mg/dL (70-110)
[2021-03-11] MEDS: Insulin Lispro 100 UNIT/ML INSULN.PEN SC ×3 (12:23→21:14)
[2021-03-11 12:40] LABS: Bedside Glucose 186 mg/dL (70-110)
[2021-03-11 17:30] LABS: Bedside Glucose 316 mg/dL (70-110)
--- NOTE | 2021-03-11 19:35 | PCM.PN.HOSP ---
Subjective Subjective Patient was seen and examined today, currently he is on 5 L of nasal cannula oxygen, he does not complain of being short of breath at rest, he has no complaints of any chest pain, fevers, or chills. Objective Data Objective Data Vital Signs: Vital Signs Temp Pulse Resp BP Pulse Ox 97.8 F 68 18 137/90 H 94 03/11/21 14:46 03/11/21 14:46 03/11/21 14:46 03/11/21 14:46 03/11/21 14:46 Oxygen Flow Rate (L/min) 5 Oxygen Delivery Method High Flow Weight: 102.693 kg Body Mass Index (BMI) 34.4 Intake & Output: Intake and Output for Last 24 Hours 03/09/21 03/10/21 03/11/21 23:59 23:59 23:59 Intake Total 2630 / 2630 400 / 1000 1250 / 1250 Output Total 2125 / 2125 725 / 1450 2400 / 2400 Balance 505 / 505 -325 / -450 -1150 / -1150 Lab / Micro Data Result Diagrams: 03/11/21 05:40 03/11/21 05:40 Labs: Laboratory Results - last 24 hr 03/10/21 22:06: POC Glucose 162 H 03/11/21 05:40: WBC 11.4 H, RBC 5.19, Hgb 15.6, Hct 43.9, MCV 84.6, MCH 30.1, MCHC 35.5, RDW Std Deviation 38.0, RDW Coeff of Marcelle 12.4, Plt Count 230, MPV 10.1, Neut % (Auto) Not Reportable, Absolute Neuts (auto) 8.7 H, Absolute Lymphs (auto) 1.94, Total Counted 100, Neutrophils % (Manual) 68, Band Neutrophils % 8 H, Lymphocytes % (Manual) 17 L, Monocytes % (Manual) 4, Myelocytes % 3 H, Diff Path Review June, Platelet Estimate ADEQUATE, RBC Morphology NORM C+C 03/11/21 05:40: Sodium 130 L, Potassium 3.9, Chloride 95 L, Carbon Dioxide 27.0, Anion Gap 8, BUN 29 H, Creatinine 1.03, Estim Creat Clear Calc 59.95, Est GFR (MDRD) Af Amer 90, Est GFR (MDRD) Non-Af 75, BUN/Creatinine Ratio 28.2 H, Glucose 97, Calcium 8.3 L, Total Bilirubin 0.50, AST 19, ALT 39, Alkaline Phosphatase 73, Total Protein 5.7 L, Albumin 2.2 L, Globulin 3.5, Albumin/Globulin Ratio 0.6 L 03/11/21 08:55: POC Glucose 87 03/11/21 11:54: POC Glucose 198 H 03/11/21 12:21: POC Glucose 186 H 03/11/21 16:41: POC Glucose 316 H Micro: Microbiology 03/05/21 18:00 Urine, Clean Catch Legionella Antigen - Final 03/05/21 18:00 Urine, Clean Catch Streptococcus pneumoniae Antigen (M - Final 03/05/21 12:50 Nasal Secretion SARS-CoV-2 Antigen (Rapid) - Final SARS-CoV-2 (COVID 19) Physical Exam Const alert, oriented x3, no apparent distress and healthy appearing General Appearance: cooperative, well kempt and well developed Orientation / Consciousness: awake, oriented to person, oriented to place and oriented to time HEENT normocephalic and moist oral mucous membranes Eyes PERRL, EOMs intact bilaterally and conjunctivae normal Neck nuchal rigidity, supple, no JVD and thyroid normal General: trachea midline Resp normal respiratory effort and clear to auscultation bilaterally Auscultation: Negative for rales, rhonchi or wheezes Cardio regular rate, regular rhythm, S1 normal heart sound, S2 normal heart sound, no murmurs, no rub and no gallops GI normal to inspection, nondistended, normoactive bowel sounds, soft to palpation, non-tender and non-distended Extremity no clubbing, cyanosis or edema Skin no rashes or lesions noted General Skin Exam: no breakdown Neuro oriented x3, CN's II-XII intact bilaterally, no focal motor deficits and no sensory deficits noted Sensorium / Orientation: awake and alert Speech: speech normal Psych thought process normal and affect normal Assessment & Plan Assessment/Plan (1) COVID-19: PLAN: 1. COVID-19 pneumonia-patient is currently on Decadron, baricitinib, patient finished his course of remdesivir #2 acute hypoxic respiratory failure-pulse ox will be monitored #3 essential hypertension-patient is currently on oral blood pressure medication at this time, continue to monitor blood pressure, make adjustments in blood pressure medications as needed #4 chronic kidney disease stage IIIb-labs will be monitored #5 type 2 diabetes-patient currently on sliding scale insulin and basal insulin, blood sugars will be monitored, sliding scale insulin will be used Charges/Coding Visit Charges Inpatient E&M: 40660 Subs Hosp L2
[2021-03-11] MEDS: 0.9% Saline Lock 10 ML Syringe IV (20:59)
[2021-03-11 21:30] LABS: Bedside Glucose 315 mg/dL (70-110)
[2021-03-12] VITALS (9 sets, daily range): BP systolic 146–168; BP diastolic 89–107; PULSE 50–70; RESP 20; TEMP 36.4–36.8; O2SAT 3–96
[2021-03-12 06:45] LABS: Bedside Glucose 145 mg/dL (70-110)
[2021-03-12 09:58] LABS: Pathologist Review Reviewed
[2021-03-12] MEDS: Enoxaparin 40 MG/0.4 ML Syringe SC (10:20)
[2021-03-12] MEDS: amLODIPine 10 MG Tablet PO (10:21)
[2021-03-12] MEDS: dexAMETHasone 4 MG Tablet 6 MG PO (10:21)
[2021-03-12] MEDS: Ascorbic Acid 500 MG Tablet PO (10:21)
[2021-03-12] MEDS: Carvedilol 6.25 MG Tablet PO (10:21)
--- NOTE | 2021-03-12 11:16 | CASEMGMT ---
As per pt's nursing assessment, pt's is his healthcare POA(Olive Chan). Pt aware not on file and stated would bring in the forms. PORTIA Hawkins
[2021-03-12] MEDS: Insulin Lispro 100 UNIT/ML INSULN.PEN SC (11:29)
[2021-03-12 11:35] LABS: Bedside Glucose 294 mg/dL (70-110)
--- NOTE | 2021-03-12 14:17 | DCINST_ITS ---
Discharge Instructions Diet Discharge Diet: 1800 Calorie Control Diet Activity Discharge Activity: Return to Normal Activity Additional Activity Instructions:: Quarantine for 20 days after symptoms of COVID-19 started Follow Up Care Test Results: Test results from this visit will be discussed in further detail at your follow-up appointment, if applicable. Discharge Plan Admission Admit Date/Time: 03/05/21 15:49 Primary Reason for Your Visit: covid-19 pneumonia Attending Provider: Kelvin Chandler Primary Care Provider: Fitz Guzman Consulting Providers: Johny Arreola ; Will Welch ; Tyrese Alvarado ; Cyndee Owen PROOF TECHNICIAN HELPER Instructions Additional Instructions / Restrictions: Please quarantine for a total of 20 days after the first symptoms of COVID-19 Use oxygen at 4 L/min via nasal cannula at rest and during activities Limit intake of concentrated sweets Follow-up with your physician on a timely basis because you have a diagnosis of diabetes and hypertension Discharge Orders/Prescriptions Prescriptions: New carvedilol 6.25 mg Tablet 6.25 mg PO BID Qty: 60 RF: 0 amlodipine 10 mg Tablet 10 mg PO DAILY Qty: 30 RF: 0 glimepiride [Amaryl] 4 mg tablet 4 mg PO DAILY Qty: 30 RF: 0 metformin 500 mg tablet 500 mg PO BID Qty: 120 RF: 0 losartan [Cozaar] 100 mg tablet 100 mg PO DAILY Qty: 30 RF: 0 Continued ascorbic acid (vitamin C) 500 mg Tablet 500 mg PO DAILY RF: 0 Referrals / Follow Up: Fitz Guzman MD [Primary Care Provider] - See Referral Note (as scheduled) Disposition Disposition (needs filled in before D/C Order can be placed): Home, Self Care
--- NOTE | 2021-03-12 14:57 | CASEMGMT ---
Addendum entered by Angela Angulo 03/12/21 15:26: Faxed [employer] referral. Portable tank taken from [facility]. Email to Ct to make aware of referral. Original Note: Pt to be dc'd today. Pt qualifies for home O2. TC to pt to review BGM and oxygen instruction. She is asking for help in the home. Per her request, provided a local in network list of [facility] agencies with star ratings. She chose [facility]. TC to Senthil at [facility]. They are able to accept pt. Faxed referral. She denies further questions. She took notes during the phone call.
--- NOTE | 2021-03-12 16:31 | DS.PCM_ITS ---
Providers Date of Admission: 03/05/21 Date of Discharge: 03/12/21 Primary Care Physician: Dr. Fitz Guzman MD Consultations 03/07/21 07:24 Consult: Infectious Disease Routine Consulting Provider: Johny Arreola Reason for Consult: Baricitinib initiation EMERGENT Consult: No Notified: Yes Date Notified: 03/07/21 Time Notified: 07:24 Method of Notification: Answering Service 03/08/21 15:33 Consult: Financial Aid Administrator / Pulmonary Medicine Routine Consulting Provider: Pulmonary Medicine yu [place] Reason for Consult: COVID EMERGENT Consult: No Notified: Yes Date Notified: 03/08/21 Time Notified: 15:33 Method of Notification: Verbal Reason For Visit: COVID-19, PNEUMONIA, HYPOXIC RESPIRATORY FAILURE Diagnosis Discharge Diagnosis (1) COVID-19: Status: Acute Code(s): U07.1 - COVID-19 Plan: 1. COVID-19 pneumonia #2 acute hypoxic respiratory failure #3 essential hypertension #4 chronic kidney disease stage IIIb #5 type 2 diabetes Medications at Discharge Home Medications ascorbic acid (vitamin C) 500 mg PO DAILY 03/05/21 amlodipine 10 mg PO DAILY #30 tab 03/12/21 carvedilol 6.25 mg PO BID #60 tab 03/12/21 glimepiride [Amaryl] 4 mg PO DAILY #30 tab 03/12/21 losartan [Cozaar] 100 mg PO DAILY #30 tab 03/12/21 metformin 500 mg PO BID #120 tab 03/12/21 Hospital Course Operations None Procedures None Summary of Care Provided Minutes Spent on Discharge: 32 Hospital Course: 75-year-old white male was seen in the emergency room with a chief complaint of shortness of breath, patient was not vaccinated for COVID-19, he denied any chest pain. He had been having viral symptoms of fever chills and body aches for about a week. Work-up in the emergency room included a chest x-ray which showed bilateral pulmonary infiltrates, creatinine was elevated at 1.81, potassium was 3.1, AST and ALT were slightly elevated. Glucose was elevated at 242. D-dimer was elevated at 1.69, CT of the chest was obtained which did not identify any pulmonary emboli but did show diffuse pulmonary infil trates indicative of COVID-19. Patient's oxygen saturation was 84% on room air and he was placed on supplemental oxygen. Patient was admitted, placed on Decadron and remdesivir,, his oxygenation declined and he was seen and consultation by infectious diseases who placed him on baricitinib. Patient was also seen in consultation by pulmonary medicine. Over the next several days, patient's oxygenation improved. On 03/12/2021, patient was seen and examined: On examination he appeared in good health and spirits. Vital signs as documented. Skin warm and dry and without overt rashes. Neck without JVD, neck was supple, trachea midline, thyroid was normal. Lungs clear bilaterally, normal air movement was noted. Heart exam notable for regular rhythm, normal sounds and absence of murmurs, rubs or gallops. Abdomen unremarkable and without evidence of organomegaly, masses, or abdominal aortic enlargement. Bowel sounds are present, abdomen is not distended. Extremities nonedematous, no cyanosis was noted, no clubbing was noted. Neuro: Cranial nerves II through XII are grossly intact, no focal motor deficits were noted, sensation to light touch and pinprick intact, motor exam 5/5 throughout. Psych: Patient is alert and oriented x3, he does not appear anxious or depressed, he does not appear agitated. On 03/12/2021, patient was discharged home in stable condition, he required oxygen at 4 L/min at rest and during activities, he was expected to wear the oxygen as prescribed inside and outside his home. Patient was instructed to obtain a COVID-19 vaccination in 2 months. Weight / BMI Weight Weight: 102.693 kg Body Mass Index (BMI) 34.4 ABG / Lab / Microbiology Data Result Diagrams: 03/11/21 05:40 03/11/21 05:40 Laboratory: Laboratory Results - last 24 hr 03/11/21 05:40: Diff Path Review Reviewed 03/11/21 16:41: POC Glucose 316 H 03/11/21 21:11: POC Glucose 315 H 03/12/21 06:08: POC Glucose 145 H 03/12/21 11:25: POC Glucose 294 H Microbiology: Microbiology 03/05/21 18:00 Urine, Clean Catch Legionella Antigen - Final 03/05/21 18:00 Urine, Clean Catch Streptococcus pneumoniae Antigen (M - Final 03/05/21 12:50 Nasal Secretion SARS-CoV-2 Antigen (Rapid) - Final SARS-CoV-2 (COVID 19) D/C Instructions Discharge Diet: 1800 Calorie Control Diet Additional Activity Instructions: Quarantine for 20 days after symptoms of COVID-19 started Meaningful Use Info Meaningful Use Diagnoses (Choose all that apply): None applicable Discharge Plan Admission Admit Date/Time: 03/05/21 15:49 Primary Reason for Your Visit: covid-19 pneumonia Attending Provider: Kelvin Chandler Primary Care Provider: Fitz Guzman Consulting Providers: Johny Arreola ; Will Welch ; Tyrese Alvarado ; Cyndee Herrera DESK REPRESENTATIVE Instructions Additional Instructions / Restrictions: Please quarantine for a total of 20 days after the first symptoms of COVID-19 Use oxygen at 4 L/min via nasal cannula at rest and during activities Limit intake of concentrated sweets Follow-up with your physician on a timely basis because you have a diagnosis of diabetes and hypertension Discharge Orders/Prescriptions Prescriptions: New carvedilol 6.25 mg Tablet 6.25 mg PO BID Qty: 60 RF: 0 amlodipine 10 mg Tablet 10 mg PO DAILY Qty: 30 RF: 0 glimepiride [Amaryl] 4 mg tablet 4 mg PO DAILY Qty: 30 RF: 0 metformin 500 mg tablet 500 mg PO BID Qty: 120 RF: 0 losartan [Cozaar] 100 mg tablet 100 mg PO DAILY Qty: 30 RF: 0 Continued ascorbic acid (vitamin C) 500 mg Tablet 500 mg PO DAILY RF: 0 Referrals / Follow Up: Fitz Guzman MD [Primary Care Provider] - See Referral Note (as scheduled) Disposition Disposition (needs filled in before D/C Order can be placed): Home Health Service Charges/Coding Visit Charges Inpatient E&M: 11299 Disch Hosp
== END 2021-03-12 17:10 | disposition home health service (06) | DRG 177 ==
LOC: ED 13:35 → MS3 16:08
PROVIDERS: Family Medicine; Emergency Provider Student in an Organized Health Care Education/Training Program; PCP Family Medicine; Visit Provider Internal Medicine
DX: U07.1 COVID-19 (principal); J12.82 Pneumonia due to coronavirus disease 2019; J96.01 Acute respiratory failure with hypoxia; J44.0 Chronic obstructive pulmonary disease with (acute) lower respiratory infection; E11.22 Type 2 diabetes mellitus with diabetic chronic kidney disease; N18.32 Chronic kidney disease, stage 3b; I12.9 Hypertensive chronic kidney disease with stage 1 through stage 4 chronic kidney disease, or unspecified chronic kidney disease; Z87.891 Personal history of nicotine dependence; Z28.3 Underimmunization status
CPT/HCPCS: 36415; 71045; 71275; 80053; 82962; 83036; 83735; 83880; 84443; 84484; 85025; 85379; 87426; 87449; 93005; 94002; 94003; 94660; 94667; 94668; 94762; 99285; J7030; J7050; Q9967; A4216; J0248; J1940